=== PATIENT | female | born 1960 | race Caucasian/White ===

== ENCOUNTER 2017-06-20 20:55 | Observation (INO) | payer MEDICARE ==
--- NOTE | 2017-06-20 21:11 | PDOC ---
History of Present Illness - General History Source: Patient, Family - History of Present Illness Initial Comments: 06/20/17 22:01 The patient is a 57 year old female, with a significant past medical history of diabetes and controlled asthma who presents to the emergency department with, of a headache, disorientation, abdominal pain, and 4 episodes of emesis for the past hour. As per patients family friend, as the patient and her were on a car ride home she became diaphoretic, so she gave her soda which she vomited. Upon arriving home, she had 3 more cases of emesis. Patient was capable of ambulating post emesis to the hospital. The patients family friend reports taking her glucose reading and it being 348 which is higher than her normal 200s range. The patient reports taking Advil for her headache last night, with relief. As per patients family friend she was sick with the cold two weeks ago when she had a Tmax of 101 degrees F. The patient is not up to date with her flu shot. The patient reports her asthma is well controlled and she uses an inhaler once a year. The patient reports to have a cough. She denies recent fevers, chills, or dizziness. She denies diarrhea or constipation. She denies recent dysuria, frequency, urgency or hematuria. She denies recent chest pain or shortness of breath. Allergies: NKA Past surgical history: Knee surgery, Plate in her neck after a work accident. Social history: Smoker (3-4 cigarettes per day). Denies EtOH use and recreational drug use. <Sera Adams - Last Filed: 06/21/17 00:28> <Kasie Carmichael - Last Filed: 06/22/17 02:49> - General Chief Complaint: Syncope/Near Syncope Stated Complaint: FATIGUE Time Seen by Provider: 06/20/17 21:11 Past History <Sera Adams - Last Filed: 06/21/17 00:28> - Past Medical History COPD: No Diabetes: Yes - Suicide/Smoking/Psychosocial Hx Smoking History: Never smoked <Kasie Carmichael - Last Filed: 06/22/17 02:49> - Past Medical History Allergies/Adverse Reactions: Allergies Allergy/AdvReac Type Severity Reaction Status Date / Time No Known Allergies Allergy Verified 06/20/17 21:05 Home Medications: Ambulatory Orders Metformin HCl [Glucophage] 1,000 mg PO BID 06/20/17 Amoxicillin - [Amoxicillin 500mg Capsule -] 500 mg PO TID #21 capsule 06/21/17 Review of Systems - Review of Systems Able to Perform ROS?: Yes Comments:: 06/20/17 22:02 GENERAL/CONSTITUTIONAL: No fever or chills. No weakness. HEAD, EYES, EARS, NOSE AND THROAT: No change in vision. No ear pain or discharge. No sore throat. CARDIOVASCULAR: No chest pain or shortness of breath. RESPIRATORY: +Cough. No wheezing, or hemoptysis. GASTROINTESTINAL: +Vomiting. +Abdominal pain. No diarrhea or constipation. GENITOURINARY: No dysuria, frequency, or change in urination. MUSCULOSKELETAL: No joint or muscle swelling or pain. No neck or back pain. SKIN: No rash NEUROLOGIC: +Headache. No vertigo, loss of consciousness, or change in strength/ sensation. ENDOCRINE: No increased thirst. No abnormal weight change. HEMATOLOGIC/LYMPHATIC: No anemia, easy bleeding, or history of blood clots. ALLERGIC/IMMUNOLOGIC: No hives or skin allergy. All Other Systems: Reviewed and Negative <Sera Adams - Last Filed: 06/21/17 00:28> *Physical Exam - Vital Signs Last Vital Signs Temp Pulse Resp BP Pulse Ox 97.6 F 69 16 123/66 99 06/20/17 21:03 06/20/17 22:00 06/20/17 22:00 06/20/17 22:00 06/20/17 21:03 - Physical Exam Comments: 06/20/17 22:02 GENERAL: Awake, alert, and fully oriented, in no acute distress. No fever. HEAD: No signs of trauma EYES: PERRLA, EOMI, sclera anicteric, conjunctiva clear ENT: Auricles normal inspection, hearing grossly normal, nares patent, oropharynx clear without exudates. Moist mucosa NECK: Normal ROM, supple, no lymphadenopathy, JVD, or masses LUNGS: Breath sounds equal, clear to auscultation bilaterally. No wheezes, and no crackles HEART: Regular rate and rhythm, normal S1 and S2, no murmurs, rubs or gallops ABDOMEN: Soft, nontender, normoactive bowel sounds. No guarding, no rebound. No masses. No flank pain. EXTREMITIES: Normal range of motion, no edema. No clubbing or cyanosis. No cords, erythema, or tenderness. Normal reflexology. NEUROLOGICAL: Cranial nerves II through XII grossly intact. Normal speech, normal gait SKIN: Warm, Dry, normal turgor, no rashes or lesions noted. <Sera Adams - Last Filed: 06/21/17 00:28> - Vital Signs Last Vital Signs Temp Pulse Resp BP Pulse Ox 97.6 F 75 18 154/79 99 06/20/17 21:03 06/20/17 21:03 06/20/17 21:03 06/20/17 21:03 06/20/17 21:03 <Kasie Carmichael - Last Filed: 06/22/17 02:49> ED Treatment Course - LABORATORY CBC & Chemistry Diagram: 06/20/17 21:23 06/20/17 21:23 - ADDITIONAL ORDERS Additional order review: Laboratory Results 06/20/17 21:23 PT with INR 11.90 H INR 1.05 06/20/17 21:23 RBC 4.46 MCV 75.1 L MCHC 32.1 RDW 16.7 H MPV 8.9 Neutrophils % 72.9 Lymphocytes % 20.6 Monocytes % 4.7 Eosinophils % 1.5 Basophils % 0.3 - Medications Given in the ED: ED Medications Discontinued Medications Generic Name Dose Route Start Last Admin Trade Name Freq PRN Reason Stop Dose Admin Acetaminophen 1,000 mg 06/20/17 21:27 06/20/17 21:34 Ofirmev Injection - IVPB 06/20/17 21:28 1,000 mg ONCE ONE Administration Metoclopramide HCl 10 mg 06/20/17 21:27 06/20/17 21:34 Reglan Injection - IVPUSH 06/20/17 21:28 10 mg ONCE ONE Administration <Sera Adams - Last Filed: 06/21/17 00:28> - LABORATORY CBC & Chemistry Diagram: 06/21/17 05:05 06/21/17 05:05 <Kasie Carmichael - Last Filed: 06/22/17 02:49> Medical Decision Making - Medical Decision Making 11:45pm Message sent via [email or web address] to hospitalist for observation admission for near syncope. 06/21/17 00:28 EXAM: CT head/brain without contrast FINDINGS: There are no calvarial, facial or skull base fractures. There are no intracranial hemorrhages or brain parenchymal contusion injuries. There are no extra-axial fluid collections or evidence of an intra-axial mass lesion. There is no evidence of an acute ischemic lesion at this time. The sulci and ventricles are normal in size. Orbital and petrous structures, cerebellopontine angles, and posterior fossa appear unremarkable. There is mild mucosal thickening within the right anterior middle and posterior ethmoid air cells, suggesting sinusitis. The paranasal and mastoid sinuses are clear. IMPRESSION: Mild right ethmoid sinusitis. No calvarial, facial or skull base fractures. No intracranial hemorrhages or brain parenchymal contusion injuries. Read by:Dr. Arnold Gomes EXAM: US ABDOMEN LIMITED FINDINGS: . Cholelithiasis, without evidence for acute cholecystitis. Mobile 2.6 cm gallstone. Multiple sub-5 mm gallbladder polyps or adherent gallstones. . Common bile duct caliber normal, 3 mm. Pancreas is echogenic probable fatty replaced but suboptimally assessed. . Right kidney appears unremarkable. . Imaged aorta non-aneurysmal. Read by: Dr. Karl Salas <Sera Adams - Last Filed: 06/21/17 00:28> - Medical Decision Making 06/20/17 22:32 Pt comes with vomiting x 4 nausea and a momentary weakness and unresponsivenss in the car with her neighbor/family. She had been shopping all evening, when on the way home in the car she became faint. Pt got home and vomited 4 times. She was driven to the ER. Here she is neurologically intact and she complains of headache and nausea. She states that she had the MUNOZ yesterday and that she had taken advil with relief. Today she had eaten tortillas beans and rice prior to going shopping. Pt has no SOB and no CP. She has a hx of DM and her blood sugar is slightly elevated. Pt will be admitted <Kasie Carmichael - Last Filed: 06/22/17 02:49> *DC/Admit/Observation/Transfer - Attestations Scribe Attestion: 06/20/17 22:02 Documentation prepared by Sera Adams, acting as durable medical equipment technician for Kasie Carmichael MD. <Sera Adams - Last Filed: 06/21/17 00:28> - Discharge Dispostion Admit: Yes <Kasie Carmichael - Last Filed: 06/22/17 02:49> Diagnosis at time of Disposition: Near syncope, Diabetes - Discharge Dispostion Disposition: HOME Condition at time of disposition: Improved
[2017-06-20] MEDS ORDERED: ACETAMINOPHEN 1000 MG/100 ML VIAL (NON FORMULARY) IVPB ONE (21:27)
[2017-06-20] MEDS ORDERED: METOCLOPRAMIDE HCL INJECTION 10 MG/2 ML VIAL IVPUSH ONE (21:27)
[2017-06-20] MEDS ORDERED: METOCLOPRAMIDE HCL INJECTION 10 MG/2 ML VIAL ONE (21:30)
[2017-06-20] MEDS ORDERED: ACETAMINOPHEN INJECTION 100 ML IVPB ONE (21:30)
[2017-06-20 21:37] LABS: BASOPHIL 0.3 % (0-2.0); EOSINOPHIL 1.5 % (0-4.5); MCH 24.1 pg (25.7-33.7); MCHC 32.1 g/dl (32.0-36.0); MEAN CELL VOLUME 75.1 fl (80-96); MEAN PLT VOLUME 8.9 fl (7.5-11.1); NEUTROPHILS 72.9 % (42.8-82.8); PLATELET COUNT 249 K/MM3 (134-434); RDW 16.7 % (11.6-15.6); WHITE BLOOD COUNT 8.7 K/mm3 (4.0-10.0)
[2017-06-20 21:55] LABS: INR 1.05 (0.82-1.09); PROTHROMBIN TIME (PATIENT) 11.9 SEC (9.98-11.88)
[2017-06-20 22:04] LABS: ALBUMIN 3.4 g/dl (3.4-5.0); ANION GAP 10 (8-16); BILIRUBIN,TOTAL 0.4 mg/dL (0.2-1.0); CALCIUM 8.4 mg/dL (8.5-10.1); CO2 21 mmol/L (21-32); CREATININE 0.7 mg/dL (0.55-1.02); SGOT/AST 58 U/L (15-37); SGPT/ALT 78 U/L (12-78); TOT PROT 7.8 g/dl (6.4-8.2)
[2017-06-20 22:06] LABS: ALK PHOS 138 U/L (45-117); CPK 96 IU/L (26-192); TROPONIN I < 0.02 ng/ml (0.00-0.05)
[2017-06-20 22:07] LABS: GLUCOSE,RANDOM 313 mg/dL (74-106)
[2017-06-21] MEDS ORDERED: ONDANSETRON 4 MG/2 ML VIAL IVPB PRN (01:28)
[2017-06-21] MEDS ORDERED: ACETAMINOPHEN 325 MG TABLET (FP) PO PRN (01:29)
[2017-06-21 02:12] VITALS: BMI 26.2
--- NOTE | 2017-06-21 02:38 | HP ---
Admitting History and Physical - Admission Chief Complaint: vomiting, fainting, abdominal pain History of Present Illness: 57 yo Citizen Of [place] speaking f w hx of dm, active tobacco smoker, presents to the Er for AMS, vomiting, MUNOZ evaluation. Patient reports onset of vomiting, MUNOZ, and pain in "pit of stomach" 2 days ago. She reports her MUNOZ is associated with vomiting. She states the pain is throbbing located in the front and right side. She reports taking Advil with effect. She denies having headaches like this in the past. She denies any associated fevers or new neck stiffness. She denies any head trauma or injury. She reports having 4 episodes of yellowish emesis today. She reports fainting while she was riding in the car. She states she felt as though she was semi-conscious. She reports episode did not last long. She reports she had epigastric and RUQ pain associated with vomiting, which was relieved with Advil. She says she had a "cold " 2 weeks ago. She reports still having a dry cough. She denies any sick contacts. She denies diarrhea. She reports having vision loss in her Right eye which lasted a short time. Ros neg except for HPI PMh/PSH- Arthroscopic knee surgery, cervical spine surgery. DM Social- + tobacco use. Denies rec drugs Famhx- mom/dad- DM Pex General- in nad, alert Resp- no cough, lungs ctab, no ronchi, no rales Cards- s1s2 heard, no JVD, no leg edema Gi- non-tender, no guarding, no rebound, BS+ Musk- normal arom bue/ble Skin- no erythema Neuro- no focal deficits, eomi, cn2-12 grossly intact, speech clear, no facial droop Psych- cooperative, no agitation Hent- at/nc, jay, neck supple, trachea midline PRob list DM fainting vomiting epigastric pain MUNOZ Imaging: EXAM: CT head/brain without contrast FINDINGS: There are no calvarial, facial or skull base fractures. There are no intracranial hemorrhages or brain parenchymal contusion injuries. There are no extra-axial fluid collections or evidence of an intra-axial mass lesion. There is no evidence of an acute ischemic lesion at this time. The sulci and ventricles are normal in size. Orbital and petrous structures, cerebellopontine angles, and posterior fossa appear unremarkable. There is mild mucosal thickening within the right anterior middle and posterior ethmoid air cells, suggesting sinusitis. The paranasal and mastoid sinuses are clear. IMPRESSION: Mild right ethmoid sinusitis. No calvarial, facial or skull base fractures. No intracranial hemorrhages or brain parenchymal contusion injuries. CXR appears clear by my eye EKG non-ischemic A/P- 57 yo [place] speaking f w hx of dm, active tobacco smoker, presents to the Er for AMS, vomiting, MUNOZ evaluation and placed in observation for evaluation. 1. Epigastric pain, Vomiting -? gastroenteritis. IVF. Prn zofran. Pain control 2. Fainting -? possibly 2/2 vasovagal r/t vomiting - EKG normal. 1st Trop neg. CTH neg. CXr appears clear by my eye. Non-focal neuro exam hydrate with IVF. Check orthostatic vitals, Cardiac tele, F/u Trops, TSH. Neuro checks. 3. MUNOZ ?Sinusitis vs viral syndrome - CTH negative for ICH, + ethmoid sinusitis. Pain control. Start Amoxicillin. 4. DM- SSI, Monitor F/s. Check A1c DVT prophy scd, oob FEN IVF, advance diet as tolerated Dispo- obs for vomiting, epigastric pain and fainting. History Source: Patient Limitations to Obtaining History: Language Barrier - Smoking History Smoking history: Never smoked - Alcohol/Substance Use Hx Alcohol Use: No Home Medications - Allergies Allergies/Adverse Reactions: Allergies Allergy/AdvReac Type Severity Reaction Status Date / Time No Known Allergies Allergy Verified 06/20/17 21:05 - Home Medications Home Medications: Ambulatory Orders Metformin HCl [Glucophage] 1,000 mg PO BID 06/20/17 Amoxicillin - [Amoxicillin 500mg Capsule -] 500 mg PO TID #21 capsule 06/21/17 Physical Examination Vital Signs: Vital Signs Temperature 97.8 F 06/21/17 01:55 Pulse Rate 59 L 06/21/17 01:55 Respiratory Rate 18 06/21/17 01:55 Blood Pressure 117/61 06/21/17 01:55 O2 Sat by Pulse Oximetry (%) 99 06/21/17 01:36 Labs: CBC, BMP 06/20/17 21:23 06/20/17 21:23 Visit type - Emergency Visit Emergency Visit: Yes ED Registration Date: 06/21/17 Care time: The patient presented to the Emergency Department on the above date and was hospitalized for further evaluation of their emergent condition. - New Patient This patient is new to me today: Yes Date on this admission: 06/22/17 - Critical Care Critical Care patient: No
[2017-06-21] MEDS ORDERED: SODIUM CHLORIDE 1,000 ML IV SCH (02:45)
[2017-06-21] MEDS ORDERED: AMOXICILLIN 500 MG CAPSULE (FP) PO SCH (06:00)
[2017-06-21 06:09] VITALS: TEMP 97.8
[2017-06-21] MEDS: INSULIN SLIDING SCALE (NOVOLOG) 1 VIAL SQ SCH ×2 (06:44→12:06)
[2017-06-21 06:54] LABS: BASOPHIL 0.3 % (0-2.0); MCH 23.9 pg (25.7-33.7); MCHC 32.1 g/dl (32.0-36.0); MEAN CELL VOLUME 74.5 fl (80-96); MEAN PLT VOLUME 8.8 fl (7.5-11.1); NEUTROPHILS 47.9 % (42.8-82.8); PLATELET COUNT 239 K/MM3 (134-434); WHITE BLOOD COUNT 8.6 K/mm3 (4.0-10.0)
[2017-06-21 07:18] LABS: ALBUMIN 2.8 g/dl (3.4-5.0); ANION GAP 6 (8-16); BILIRUBIN,TOTAL 0.4 mg/dL (0.2-1.0); CALCIUM 7.8 mg/dL (8.5-10.1); CO2 24 mmol/L (21-32); CREATININE 0.5 mg/dL (0.55-1.02); GLUCOSE,RANDOM 184 mg/dL (74-106); SGOT/AST 38 U/L (15-37); SGPT/ALT 61 U/L (12-78); TOT PROT 6.2 g/dl (6.4-8.2)
[2017-06-21 07:26] LABS: ALK PHOS 107 U/L (45-117); THYROID STIMULATING HORMONE 0.62 uIU/ml (0.358-3.74)
[2017-06-21 07:27] LABS: CPK 72 IU/L (26-192)
[2017-06-21 07:28] LABS: TROPONIN I < 0.02 ng/ml (0.00-0.05)
--- NOTE | 2017-06-21 08:35 | EKG ---
Test Reason : Blood Pressure : / mmHG Vent. Rate : 066 BPM Atrial Rate : 066 BPM P-R Int : 166 ms QRS Dur : 080 ms QT Int : 396 ms P-R-T Axes : 046 016 022 degrees QTc Int : 415 ms NORMAL SINUS RHYTHM NORMAL ECG NO PREVIOUS ECGS AVAILABLE Confirmed by AKRIN RUBIN, YAMIL ([id number]) on 06/21/2017 8:34:38 AM Referred By: Confirmed By:YAMIL FRAZIER MD
--- NOTE | 2017-06-21 10:57 | DS ---
Physical Exam: SUBJECTIVE: Patient seen and examined OBJECTIVE: Vital Signs Period Temp Pulse Resp BP Sys/Farooq Pulse Ox Last 24 Hr 97.6 F-98.6 F 56-75 16-20 90-154/50-79 97-99 PHYSICAL EXAM GENERAL: The patient is awake, alert, and fully oriented, in no acute distress. HEAD: Normal with no signs of trauma. EYES: PERRL, extraocular movements intact, sclera anicteric, conjunctiva clear. ENT: Ears normal, nares patent, oropharynx clear without exudates, moist mucous membranes. NECK: Trachea midline, full range of motion, supple. LUNGS: Breath sounds equal, clear to auscultation bilaterally, no wheezes, no crackles, no accessory muscle use. HEART: Regular rate and rhythm, S1, S2 without murmur, rub or gallop. ABDOMEN: Soft, nontender, nondistended, normoactive bowel sounds, no guarding, no rebound, no hepatosplenomegaly, no masses. EXTREMITIES: 2+ pulses, warm, well-perfused, no edema. NEUROLOGICAL: Cranial nerves II through XII grossly intact. Normal speech, gait not observed. PSYCH: Normal mood, normal affect. SKIN: Warm, dry, normal turgor, no rashes or lesions noted. LABS Laboratory Results - last 24 hr 06/20/17 06/20/17 06/20/17 21:23 21:23 21:23 WBC 8.7 RBC 4.46 Hgb 10.8 Hct 33.5 MCV 75.1 L MCH 24.1 L MCHC 32.1 RDW 16.7 H Plt Count 249 MPV 8.9 Neutrophils % 72.9 Lymphocytes % 20.6 Monocytes % 4.7 Eosinophils % 1.5 Basophils % 0.3 PT with INR 11.90 H INR 1.05 Sodium 136 Potassium 4.0 Chloride 105 Carbon Dioxide 21 Anion Gap 10 BUN 14 Creatinine 0.7 Creat Clearance w eGFR > 60 POC Glucometer Random Glucose 313 H* Hemoglobin A1c % Calcium 8.4 L Total Bilirubin 0.4 AST 58 H ALT 78 Alkaline Phosphatase 138 H Creatine Kinase 96 Troponin I < 0.02 Total Protein 7.8 Albumin 3.4 Lipase 120 TSH Acetone, Qual 06/20/17 06/21/17 06/21/17 21:23 03:40 05:05 WBC 8.6 RBC 4.01 Hgb 9.6 L D Hct 29.9 L MCV 74.5 L MCH 23.9 L MCHC 32.1 RDW 17.0 H Plt Count 239 MPV 8.8 Neutrophils % 47.9 D Lymphocytes % 41.1 H D Monocytes % 7.7 Eosinophils % 3.0 D Basophils % 0.3 PT with INR INR Sodium Potassium Chloride Carbon Dioxide Anion Gap BUN Creatinine Creat Clearance w eGFR POC Glucometer Random Glucose Hemoglobin A1c % Calcium Total Bilirubin AST ALT Alkaline Phosphatase Creatine Kinase Troponin I < 0.02 Total Protein Albumin Lipase TSH Acetone, Qual Negative L 06/21/17 06/21/17 06/21/17 05:05 05:05 05:05 WBC RBC Hgb Hct MCV MCH MCHC RDW Plt Count MPV Neutrophils % Lymphocytes % Monocytes % Eosinophils % Basophils % PT with INR INR Sodium 139 Potassium 3.7 Chloride 109 H Carbon Dioxide 24 Anion Gap 6 L BUN 10 D Creatinine 0.5 L D Creat Clearance w eGFR > 60 POC Glucometer Random Glucose 184 H D Hemoglobin A1c % 11.7 H Calcium 7.8 L Total Bilirubin 0.4 AST 38 H D ALT 61 D Alkaline Phosphatase 107 D Creatine Kinase 72 Troponin I < 0.02 Total Protein 6.2 L D Albumin 2.8 L Lipase TSH 0.62 Acetone, Qual 06/21/17 06:00 WBC RBC Hgb Hct MCV MCH MCHC RDW Plt Count MPV Neutrophils % Lymphocytes % Monocytes % Eosinophils % Basophils % PT with INR INR Sodium Potassium Chloride Carbon Dioxide Anion Gap BUN Creatinine Creat Clearance w eGFR POC Glucometer 208 Random Glucose Hemoglobin A1c % Calcium Total Bilirubin AST ALT Alkaline Phosphatase Creatine Kinase Troponin I Total Protein Albumin Lipase TSH Acetone, Qual HOSPITAL COURSE: Date of Admission:06/21/17 Date of Discharge: 06/21/17 The patient is a 57 year old female, with a significant past medical history of diabetes and controlled asthma who presents to the emergency department with, of a headache, disorientation, abdominal pain, and 4 episodes of emesis for the past hour. As per patients family friend, as the patient and her were on a car ride home she became diaphoretic, so she gave her soda which she vomited. Upon arriving home, she had 3 more cases of emesis. Patient was capable of ambulating post emesis to the hospital. The patients family friend reports taking her glucose reading and it being 348 which is higher than her normal 200s range. The patient reports taking Advil for her headache last night, with relief. As per patients family friend she was sick with the cold two weeks ago when she had a Tmax of 101 degrees F. The patient is not up to date with her flu shot. The patient reports her asthma is well controlled and she uses an inhaler once a year. The patient reports to have a cough. She denies recent fevers, chills, or dizziness. She denies diarrhea or constipation. She denies recent dysuria, frequency, urgency or hematuria. She denies recent chest pain or shortness of breath. 57 yo ar[place]ian speaking f w hx of dm, active tobacco smoker, presents to the Er for AMS, vomiting, MUNOZ evaluation and placed in observation for evaluation. 1. Epigastric pain, Vomiting -? gastroenteritis. IVF. Prn zofran. Pain control 2. Fainting -? possibly 2/2 vasovagal r/t vomiting - EKG normal. Non-focal neuro exam hydrate with IVF. Check orthostatic vitals, Cardiac tele. 3. MUNOZ ?Sinusitis vs viral syndrome - CTH negative for ICH, + ethmoid sinusitis. Pain control. Start Amoxicillin. 4. DM- SSI, Monitor F/s. Check A1c Dispo- obs for vomiting, epigastric pain and fainting. Minutes to complete discharge: 35 Discharge Summary Reason For Visit: PRE-SYNCOPE, DIABETES MELLITUS Current Active Problems Diabetes (Acute) Near syncope (Acute) Condition: Improved - Instructions Diet, Activity, Other Instructions: A prescription has been sent to your pharmacy for amoxicillin to treat your sinusitis. Take this medication as directed and be sure to FINISH all the pills. It is important to stay well hydrated, drink plenty of non-sugary fluids. Return to the emergency department for any new or worsening symptoms. Referrals: Eris Rutledge MD [Staff Physician] - Disposition: HOME - Home Medications Comprehensive Discharge Medication List: Ambulatory Orders Metformin HCl [Glucophage] 1,000 mg PO BID 06/20/17 Amoxicillin - [Amoxicillin 500mg Capsule -] 500 mg PO TID #21 capsule 06/21/17 This patient is new to me today: Yes Date on this admission: 06/21/17 Emergency Visit: Yes ED Registration Date: 06/21/17 Care time: The patient presented to the Emergency Department on the above date and was hospitalized for further evaluation of their emergent condition. Critical Care patient: No - Discharge Referral Referred to [facility] No
[2017-06-21 13:45] VITALS: BP 97/57; PULSE 65
[2017-06-21 14:23] LABS: URINE APPEARANCE SLCLOUDY; URINE BILIRUBIN NEGATIVE (NEGATIVE); URINE BLOOD NEGATIVE (NEGATIVE); URINE COLOR YELLOW; URINE GLUCOSE (UA) 2+ (NEGATIVE); URINE KETONE TRACE (NEGATIVE); URINE NITRITE NEGATIVE (NEGATIVE); URINE PROTEIN NEGATIVE (NEGATIVE)
[2017-06-21 14:27] LABS: CHOLESTEROL 151 mg/dL (50-200)
[2017-06-21 21:39] LABS: URINE LEUK ESTERASE Negative (NEGATIVE)
== END 2017-06-21 15:11 | disposition home or self-care (01) ==
LOC: JER 20:55 → JERBED 06-21 00:03 → J8W 06-21 01:49 → J4W 06-21 03:31
PROVIDERS: ADMIT Internal Medicine; ATTEND Nurse Practitioner Acute Care
DX: R55 Syncope and collapse (principal); E11.9 Type 2 diabetes mellitus without complications; Z79.84 Long term (current) use of oral hypoglycemic drugs; F17.210 Nicotine dependence, cigarettes, uncomplicated
CPT/HCPCS: 36415; 70450-TC; 71010-TC; 76705-TC; 80053; 80061; 81003; 82009; 82550; 83036; 83690; 83721; 84443; 84484; 85025; 85610; 87254; 87804; 93005; 93010; 99285-25; G0378

== ENCOUNTER 2018-03-07 14:53 | Emergency (ER) | payer OTHER ==
[2018-03-07 15:05] VITALS: BMI 25.9
--- NOTE | 2018-03-07 15:07 | PDOC ---
History of Present Illness - General Chief Complaint: Back Pain Stated Complaint: PAIN Time Seen by Provider: 03/07/18 15:06 - History of Present Illness Initial Comments: The patient is a 57F with a history of T2DM and RA who presents with 1 day of acute on chronic diffuse joint pain including her b/l shoulders, elbows, wrists , knees, and ankles. She reports that she has a history of chronic pain in these joints; however, today her pain is acutely worse. She denies fevers/chills , chest pain, abdominal pain, N/V/C/D, or changes in sensation. She denies any new triggers or activity. She denies falls. 03/07/18 15:47 Past History - Past Medical History Allergies/Adverse Reactions: Allergies Allergy/AdvReac Type Severity Reaction Status Date / Time No Known Allergies Allergy Verified 06/20/17 21:05 Home Medications: Ambulatory Orders Metformin HCl [Glucophage] 1,000 mg PO BID 06/20/17 Amoxicillin - [Amoxicillin 500mg Capsule -] 500 mg PO TID #21 capsule 06/21/17 Oxycodone HCl/Acetaminophen [Percocet 5-325 mg Tablet] 1 tab PO TID PRN #9 tablet MDD 3 tabs 03/07/18 Prednisone [Deltasone] 40 mg PO DAILY 4 Days #8 tablet 03/07/18 Prednisone [Deltasone] 40 mg PO DAILY 4 Days #8 tablet 03/07/18 COPD: No DVT: No Diabetes: Yes - Immunization History Immunization Up to Date: No - Suicide/Smoking/Psychosocial Hx Smoking History: Never smoked Have you smoked in the past 12 months: No Information on smoking cessation initiated: No Hx Alcohol Use: No Drug/Substance Use Hx: No Substance Use Type: None Review of Systems - Review of Systems Able to Perform ROS?: Yes Comments:: GENERAL/CONSTITUTIONAL: No fever or chills. No weakness HEAD, EYES, EARS, NOSE AND THROAT: No change in vision. No ear pain or discharge. No sore throat CARDIOVASCULAR: No chest pain or shortness of breath RESPIRATORY: No cough, wheezing, or hemoptysis GASTROINTESTINAL: No nausea, vomiting, diarrhea or constipation GENITOURINARY: No dysuria, frequency, or change in urination MUSCULOSKELETAL: per HPI SKIN: No rash NEUROLOGIC: No headache, vertigo, loss of consciousness, or change in strength/ sensation ENDOCRINE: No increased thirst. No abnormal weight change HEMATOLOGIC/LYMPHATIC: No anemia, easy bleeding, or history of blood clots ALLERGIC/IMMUNOLOGIC: No hives or skin allergy 03/07/18 15:49 *Physical Exam - Vital Signs Last Vital Signs Temp Pulse Resp BP Pulse Ox 98.0 F 98 H 16 136/98 100 03/07/18 14:53 03/07/18 14:53 03/07/18 14:53 03/07/18 14:53 03/07/18 14:53 - Physical Exam Comments: GENERAL: Awake, alert, and fully oriented, in no acute distress HEAD: No signs of trauma, normocephalic, atraumatic EYES: PERRL, EOMI, sclera anicteric, conjunctiva clear ENT: Hearing grossly normal, nares patent, oropharynx clear without exudates. Moist mucosa NECK: Normal ROM, supple, no lymphadenopathy LUNGS: No distress, speaks full sentences, clear to auscultation bilaterally HEART:Regular rate and rhythm, normal S1 and S2, no murmurs appreciated, peripheral pulses normal and equal bilaterally ABDOMEN: Soft, nontender, normoactive bowel sounds. No guarding, no rebound. EXTREMITIES : TTP over b/l shoulders, chest wall, elbows, wrists, knees (mostly) , and ankles. ROM intact though slow movements 2/2 pain. No clubbing or cyanosis. NEUROLOGICAL: Cranial nerves II through XII grossly intact. Normal speech, normal gait, no focal sensorimotor deficits SKIN: Warm, Dry, normal turgor, no rashes or lesions noted 03/07/18 15:50 ED Treatment Course - LABORATORY CBC & Chemistry Diagram: 03/07/18 16:20 03/07/18 16:20 Medical Decision Making - Medical Decision Making The patient is a 57F with a history of RA who presents with acute on chronic multi-joint arthritic pain ED Course ESR, CRP, CBC, CMP Toradol and Ofirmev for pain 03/07/18 15:51 Pain mildly improved s/p Ofirmev an Toradol 03/07/18 16:57 CRP and ESR elevated consistent with inflammatory joint dz Pain improved s/p Morphine and Steroids Plan to DC with Percocet and 4 more days of Prednisone Pt was discharged home/self-care. Pt was provided written discharge instructions. Additional verbal instructions were given and discussed with Pt Pt was asked to return to the ED immediately for any new or concerning or if they worsen. Pt was in agreement, endorsed understanding, and questions were answered. Patient to f/u with Warp Tension Tester within next 1-3 days Dispo: home 03/07/18 19:33 *DC/Admit/Observation/Transfer Diagnosis at time of Disposition: Rheumatoid arteritis - Discharge Dispostion Disposition: HOME Condition at time of disposition: Improved Decision to Admit order: No - Prescriptions Prescriptions: Oxycodone HCl/Acetaminophen [Percocet 5-325 mg Tablet] 1 tab PO TID PRN #9 tablet MDD 3 tabs PRN Reason: Pain Prednisone [Deltasone] 40 mg PO DAILY 4 Days #8 tablet Prednisone [Deltasone] 40 mg PO DAILY 4 Days #8 tablet - Referrals Referrals: Volodymyr Mccloud [Non Staff, Medical] - - Patient Instructions Printed Discharge Instructions: DI for Rheumatoid Arthritis Additional Instructions: You were seen in the Emergency Department today for acute exacerbation of your rheumatoid arthritis pain. You were treated for your pain and prescribed prednisone and Percocet for your pain. Please take these medications as directed. Also, please follow up with your Warp Tension Tester within the next 1-3 days. Return to the Emergency Room if you develop fever, you have worsening symptoms, or you have new concerning symptoms. - Post Discharge Activity
[2018-03-07] MEDS ORDERED: KETOROLAC TROMETHAMINE 30 MG/1 ML VIAL IM ONE (15:18)
[2018-03-07] MEDS ORDERED: ACETAMINOPHEN 325 MG TABLET (FP) PO ONE (15:18)
--- NOTE | 2018-03-07 15:21 | PDOC ---
Attending Attestation - Resident Resident Name: Vasquez Del Castillo - Medical Decision Making 03/07/18 16:08 Pt presents to the ED complaining of generalized pain consistent with, but worse than prior RA exacerbations. Denies fevers or other complaints. Will check labs and treat pain with IV toradol and IV tylenol. Will check ESR and CRP to evaluate for PMR. If labs are negative will discharge if pain is controlled and admit for observation for pain control if pain cannot be controlled with outpatient meds. <Neelam Grewal - Last Filed: 03/07/18 16:04> - ED Attending Attestation I have performed the following: I have examined & evaluated the patient, The case was reviewed & discussed with the resident, I agree w/resident's findings & plan, Exceptions are as noted - HPI HPI: 03/07/18 16:27 The patient is a 57-year-old Bangladeshi speaking female presents to the emergency department with joint pain. The patient reports acute onset of full body pain for the past 1 day. The patient reports a history of chronic joint thats was aggravated recently. Denies fever, chills, chest pain, SOB, abdominal pain, nausea, vomiting, diarrhea, constipation. Denies numbness, tingling or loss of sensation. PMHx: DM, Arthritis, and RA. PSHx: Arthroscopic knee surgery, cervical spine surgery SHx: None reported Allergies: None PCP: None. - Physicial Exam PE: 03/07/18 16:27 GENERAL: Awake, alert, and fully oriented, (+) Appears uncomfortable. HEAD: No signs of trauma NECK: Normal ROM, supple, no lymphadenopathy, JVD, or masses LUNGS: Breath sounds equal, clear to auscultation bilaterally. No wheezes, and no crackles HEART: Regular rate and rhythm, normal S1 and S2, no murmurs, rubs or gallops ABDOMEN: Soft, nontender, normoactive bowel sounds. No guarding, no rebound. No masses EXTREMITIES: Diffusely tender without erythema. Patient is reluctant to move extremity, appears to have full ROM to the knees, elbows and wrist. no edema. No clubbing or cyanosis. No cords. NEUROLOGICAL: Cranial nerves II through XII grossly intact. Normal speech, normal gait SKIN: Warm, Dry, normal turgor, no rashes or lesions noted. - Medical Decision Making 03/07/18 16:30 Documentation prepared by Belkis Schulte, acting as medical insurance collector for Neleam Grewal MD. <Belkis Schulte - Last Filed: 03/07/18 16:30>
[2018-03-07] MEDS ORDERED: KETOROLAC TROMETHAMINE 30 MG/1 ML VIAL IVPUSH ONE (15:26)
[2018-03-07] MEDS ORDERED: ACETAMINOPHEN 1000 MG/100 ML VIAL (NON FORMULARY) IVPB ONE (15:26)
[2018-03-07] MEDS ORDERED: KETOROLAC TROMETHAMINE 30 MG/1 ML VIAL ONE (16:16)
[2018-03-07] MEDS ORDERED: ACETAMINOPHEN INJECTION 100 ML IVPB ONE (16:16)
[2018-03-07 16:33] LABS: HEMATOCRIT 31.3 % (32.4-45.2); HEMOGLOBIN 10.3 GM/dL (10.7-15.3); MCH 24.6 pg (25.7-33.7); MEAN CELL VOLUME 74.6 fl (80-96); PLATELET COUNT 380 K/MM3 (134-434); RDW 15.7 % (11.6-15.6); WHITE BLOOD COUNT 13.9 K/mm3 (4.0-10.0)
[2018-03-07 17:20] LABS: ALBUMIN 3.3 g/dl (3.4-5.0); ALK PHOS 128 U/L (45-117); ANION GAP 11 (8-16); BILIRUBIN,TOTAL 0.6 mg/dL (0.2-1.0); BLOOD UREA NITROGEN 12 mg/dL (7-18); CALCIUM 9.3 mg/dL (8.5-10.1); CHLORIDE 102 mmol/L (98-107); CO2 22 mmol/L (21-32); CREATININE 0.6 mg/dL (0.55-1.02); GLUCOSE,RANDOM 173 mg/dL (74-106); POTASSIUM 4.1 mmol/L (3.5-5.1); SGOT/AST 41 U/L (15-37); SGPT/ALT 47 U/L (12-78); SODIUM 135 mmol/L (136-145); TOT PROT 8.2 g/dl (6.4-8.2)
[2018-03-07 17:21] LABS: ERYTHROCYTE SEDIMENTATION RATE 106 mm/hr (0-30)
[2018-03-07] MEDS ORDERED: predniSONE 20 MG TABLET (UD) PO ONE (18:01)
[2018-03-07] MEDS ORDERED: morphine CARPU-JECT 4 MG/1 ML DISP.SYRIN IVPUSH ONE (18:02)
[2018-03-07] MEDS ORDERED: predniSONE 20 MG TABLET (UD) ONE (18:24)
[2018-03-07] MEDS ORDERED: morphine SULFATE 4 MG/ML VIAL ONE (18:25)
--- NOTE | 2018-03-07 19:31 | PDOC ---
*Physical Exam - Vital Signs Last Vital Signs Temp Pulse Resp BP Pulse Ox 98.0 F 98 H 16 136/98 100 03/07/18 14:53 03/07/18 14:53 03/07/18 14:53 03/07/18 14:53 03/07/18 14:53 ED Treatment Course - LABORATORY CBC & Chemistry Diagram: 03/07/18 16:20 03/07/18 16:20 - ADDITIONAL ORDERS Additional order review: Laboratory Results 03/07/18 16:20 Sodium 135 L Potassium 4.1 Chloride 102 Carbon Dioxide 22 Anion Gap 11 BUN 12 Creatinine 0.6 Creat Clearance w eGFR > 60 Random Glucose 173 H Calcium 9.3 Total Bilirubin 0.6 AST 41 H ALT 47 Alkaline Phosphatase 128 H C-Reactive Protein 2.5 H Total Protein 8.2 Albumin 3.3 L 03/07/18 16:20 RBC 4.20 MCV 74.6 L MCHC 33.0 RDW 15.7 H MPV 8.0 - Medications Given in the ED: ED Medications Discontinued Medications Generic Name Dose Route Start Last Admin Trade Name Padmaja PRN Reason Stop Dose Admin Acetaminophen 975 mg 03/07/18 15:18 03/07/18 16:10 Tylenol - PO 03/07/18 15:19 Not Given ONCE ONE Acetaminophen 1,000 mg 03/07/18 15:26 03/07/18 16:15 Ofirmev Injection - IVPB 03/07/18 15:27 1,000 mg ONCE ONE Administration Ketorolac Tromethamine 30 mg 03/07/18 15:18 03/07/18 16:10 Toradol Injection - IM 03/07/18 15:19 Not Given ONCE ONE Ketorolac Tromethamine 30 mg 03/07/18 15:26 03/07/18 16:25 Toradol Injection - IVPUSH 03/07/18 15:27 30 mg ONCE ONE Administration Morphine Sulfate 4 mg 03/07/18 18:02 03/07/18 18:31 Morphine Injection - IVPUSH 03/07/18 18:03 4 mg ONCE ONE Administration Prednisone 40 mg 03/07/18 18:01 03/07/18 18:26 Deltasone - PO 03/07/18 18:02 40 mg ONCE ONE Administration Medical Decision Making - Medical Decision Making 03/07/18 19:29 Sign out taken at 5PM. 57 F with polyarthralgias consistent with known RA. Pt being followed by rheumatology. Labs notable for elevated ESR and CRP Compared to pt's outpt labs, these appear to be at baseline Pt given toradol, tylenol, prednisone, and morphine. 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 Pt is well appearing, with normal vitals. Clinically stable for DC at this time. I discussed the physical exam findings, ancillary test results and final diagnoses with the patient. I answered all of the patient's questions. The patient was satisfied with the care received and felt comfortable with the discharge plan and treatment plan. The patient agrees to follow up with the primary care physician within 24-72 hours. *DC/Admit/Observation/Transfer Diagnosis at time of Disposition: Rheumatoid arteritis - Prescriptions Prescriptions: Prednisone [Deltasone] 40 mg PO DAILY 4 Days #8 tablet - Referrals - Patient Instructions - Post Discharge Activity
[2018-03-07 20:59] VITALS: BP 130/78; PULSE 86; TEMP 98.1
== END 2018-03-07 20:35 | disposition home or self-care (01) ==
LOC: JER 14:53
PROC: 3E033NZ Introduction of Analgesics, Hypnotics, Sedatives into Peripheral Vein, Percutaneous Approach (ICD-10-PCS; principal; 2018-03-07)
PROC: 3E033NZ Introduction of Analgesics, Hypnotics, Sedatives into Peripheral Vein, Percutaneous Approach (ICD-10-PCS; 2018-03-07)
PROC: 3E0333Z Introduction of Anti-inflammatory into Peripheral Vein, Percutaneous Approach (ICD-10-PCS; 2018-03-07)
DX: M25.579 Pain in unspecified ankle and joints of unspecified foot (principal); M06.89 Other specified rheumatoid arthritis, multiple sites; E11.9 Type 2 diabetes mellitus without complications; Z79.84 Long term (current) use of oral hypoglycemic drugs
CPT/HCPCS: 36415; 80053; 85027; 85651; 86140; 96374; 96375; 99282-25; J0131

== ENCOUNTER 2019-04-17 18:38 | Inpatient (IN) | payer OTHER ==
[2019-04-17] MEDS ORDERED: KETOROLAC TROMETHAMINE 15 MG/ML VIAL IVPUSH ONE (19:37)
[2019-04-17] MEDS ORDERED: SODIUM CHLORIDE 0.9% 500 ML INFUS.BAG IV ONE (19:37)
[2019-04-17] MEDS ORDERED: ACETAMINOPHEN 1000 MG/100 ML VIAL (NON FORMULARY) IVPB ONE (19:37)
[2019-04-17] MEDS ORDERED: ONDANSETRON 4 MG/2 ML VIAL IVPUSH ONE (19:37)
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
[2019-04-17] MEDS ORDERED: ACETAMINOPHEN INJECTION 100 ML IVPB ONE (19:43)
[2019-04-17] MEDS ORDERED: ONDANSETRON 4 MG/2 ML VIAL ONE (19:44)
[2019-04-17] MEDS ORDERED: KETOROLAC TROMETHAMINE 15 MG/ML VIAL ONE (19:44)
[2019-04-17 20:05] LABS: BASO % 0.3 % (0-2.0); EOS % 1.8 % (0-4.5); HEMATOCRIT 33.4 % (32.4-45.2); HEMOGLOBIN 10.4 GM/dL (10.7-15.3); LYMPH % 20.7 % (8-40); MCH 22.5 pg (25.7-33.7); MCHC 31.1 g/dl (32.0-36.0); MEAN CELL VOLUME 72.2 fl (80-96); MEAN PLT VOLUME 8.1 fl (7.5-11.1); MONO % 6.3 % (3.8-10.2); NEUT % 70.9 % (42.8-82.8); PLATELET COUNT 471 K/MM3 (134-434); RBC 4.62 M/mm3 (3.60-5.2); RDW 17.5 % (11.6-15.6); WHITE BLOOD COUNT 14.2 K/mm3 (4.0-10.0)
[2019-04-17 20:26] LABS: ALBUMIN 3.6 g/dl (3.4-5.0); ALK PHOS 116 U/L (45-117); ANION GAP 11 MMOL/L (8-16); BILIRUBIN,TOTAL 0.3 mg/dL (0.2-1); BLOOD UREA NITROGEN 24.2 mg/dL (7-18); CALCIUM 9.5 mg/dL (8.5-10.1); CHLORIDE 102 mmol/L (98-107); CO2 23 mmol/L (21-32); GLUCOSE,RANDOM 146 mg/dL (74-106); POTASSIUM 4.3 mmol/L (3.5-5.1); SGOT/AST 39 U/L (15-37); SGPT/ALT 34 U/L (13-61); SODIUM 137 mmol/L (136-145); TOT PROT 8.2 g/dl (6.4-8.2)
[2019-04-17 20:57] LABS: LIPASE 170 U/L (73-393)
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
[2019-04-17] MEDS: SODIUM CHLORIDE 1,000 ML IV SCH (22:01)
[2019-04-17] MEDS ORDERED: CIPROFLOXACIN 400 MG/D5W 400 MG/200 ML IVPB IVPB ONE (22:02)
--- NOTE | 2019-04-17 22:04 | PDOC ---
Documentation entered by Sera Adams SCRIBE, acting as scribe for Kasie Carmichael MD. Kasie Carmichael MD: This documentation has been prepared by the Angie schaeffer Nirvannie, SCRIBE, under my direction and personally reviewed by me in its entirety. I confirm that the documentation accurately reflects all work, treatment, procedures, and medical decision making performed by me. Attending Attestation - Resident Resident Name: Vasquez Del Castillo - ED Attending Attestation I have performed the following: I have examined & evaluated the patient, The case was reviewed & discussed with the resident, I agree w/resident's findings & plan - HPI HPI: 04/17/19 20:27 The patient is a 58 year old female, with a significant past medical history of HTN and DM, who presents to the emergency department with, worsening sharp RUQ pain radiating to the back to the back and chest pain. As per patient, the pain was initially intermittent and over the past two weeks has become constant and over he past "few" days has become more severe in nature. She denies recent fevers, chills, headache or dizziness. Allergies: NKDA - Physicial Exam PE: 04/17/19 21:22 GENERAL: +Yellow tinge to the skin. Awake, alert, and fully oriented, in no acute distress HEAD: No signs of trauma EYES: PERRLA, EOMI, + scleral icterus. ENT: Auricles normal inspection, hearing grossly normal, nares patent, oropharynx clear without exudates. Moist mucosa NECK: Normal ROM, supple, no lymphadenopathy, JVD, or masses LUNGS: Breath sounds equal, clear to auscultation bilaterally. No wheezes, and no crackles HEART: Regular rate and rhythm, normal S1 and S2, no murmurs, rubs or gallops ABDOMEN/BACK: +[place] sign positive. +Minimal right flank pain with pressure not percussion. Soft, normoactive bowel sounds. No guarding, no rebound. No masses EXTREMITIES: Normal range of motion, no edema. No clubbing or cyanosis. No cords, erythema, or tenderness NEUROLOGICAL: Cranial nerves II through XII grossly intact. Normal speech SKIN: Warm, Dry, normal turgor, no rashes or lesions noted. - Medical Decision Making 04/17/19 22:03 Pt will be admitted for a cholecystectomy. She has a hopkins's sign and she appears jaundiced, though her Tbili is normal. Worsenin GB pain x 2 weeks. She are pork today
[2019-04-17 23:10] LABS: PROTHROMBIN TIME (PATIENT) 11.8 SEC (9.7-13.0)
[2019-04-17 23:13] LABS: ACTIVATED PTT 27.2 SECONDS (25.2-36.5)
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
[2019-04-18] LABS: URINE APPEARANCE CLEAR; URINE BILIRUBIN NEGATIVE (NEGATIVE); URINE COLOR YELLOW; URINE GLUCOSE (UA) NEGATIVE (NEGATIVE); URINE KETONE NEGATIVE (NEGATIVE); URINE LEUK ESTERASE NEGATIVE (NEGATIVE); URINE NITRITE NEGATIVE (NEGATIVE); URINE PROTEIN TRACE (NEGATIVE); URINE UROBILINOGEN 0.2 mg/dL (0.2-1.0)
[2019-04-18 01:22] LABS: HEMATOCRIT 28.1 % (32.4-45.2); HEMOGLOBIN 8.8 GM/dL (10.7-15.3); MCH 22.4 pg (25.7-33.7); MCHC 31.2 g/dl (32.0-36.0); MEAN CELL VOLUME 71.8 fl (80-96); MEAN PLT VOLUME 7.2 fl (7.5-11.1); PLATELET COUNT 381 K/MM3 (134-434); RBC 3.92 M/mm3 (3.60-5.2); RDW 17.8 % (11.6-15.6); WHITE BLOOD COUNT 10.7 K/mm3 (4.0-10.0)
[2019-04-18 02:46] VITALS: BMI 23.9
[2019-04-18] MEDS: INSULIN SLIDING SCALE (NOVOLOG) 1 VIAL SQ SCH ×4 (06:01→21:21)
[2019-04-18] MEDS: SODIUM CHLORIDE 1,000 ML IV SCH ×2 (06:47→23:21)
[2019-04-18] MEDS ORDERED: metFORMIN HCL 500 MG TABLET (FP) PO SCH (07:00)
[2019-04-18] MEDS ORDERED: glipiZIDE 5 MG TABLET (FP) PO SCH (07:00)
[2019-04-18 08:12] LABS: ALBUMIN 2.8 g/dl (3.4-5.0); BILIRUBIN,TOTAL 0.4 mg/dL (0.2-1); BLOOD UREA NITROGEN 17.4 mg/dL (7-18); CREATININE 0.7 mg/dL (0.55-1.3); TOT PROT 6.3 g/dl (6.4-8.2)
[2019-04-18 08:51] LABS: HEMATOCRIT 27.4 % (32.4-45.2); HEMOGLOBIN 8.5 GM/dL (10.7-15.3); MCH 22.5 pg (25.7-33.7); MEAN CELL VOLUME 72.7 fl (80-96); MEAN PLT VOLUME 8.1 fl (7.5-11.1); PLATELET COUNT 356 K/MM3 (134-434); RBC 3.78 M/mm3 (3.60-5.2); RDW 17.3 % (11.6-15.6); WHITE BLOOD COUNT 10.9 K/mm3 (4.0-10.0)
--- NOTE | 2019-04-18 09:26 | CONSULT ---
- Consultation REQUESTING PROVIDER: CONSULT REQUEST: We have been asked to surgically evaluate this patient for RUQ pain/cholethiasis PCP:Perlita Santoro HISTORY OF PRESENT ILLNESS: 58yo F was admitted for RUQ pain and concern for cholecystitis. Pt states that she was told that she had gallstones a couple years ago, but never followed up with a surgeon. Pt has been complaining of RUQ pain after eating for the past two weeks. The pain became more severe yesterday and associated with n/v. Pt denies fever, chills, cp, or SOB. Denies previous abd surgery. PMHx: HLD, DM Home Medications Medication Instructions Recorded Metformin HCl [Glucophage] 1,000 mg PO DAILY 06/20/17 Glipizide 10 mg PO DAILY 04/17/19 Atorvastatin Ca [Lipitor] 20 mg PO DAILY 04/18/19 Prednisone 5 mg PO DAILY 04/18/19 Allergies Allergy/AdvReac Type Severity Reaction Status Date / Time No Known Allergies Allergy Verified 04/17/19 18:41 REVIEW OF SYSTEMS: CONSTITUTIONAL: Absent: fever, chills, diaphoresis, generalized weakness, malaise, loss of appetite, weight change CARDIOVASCULAR: Absent: chest pain, syncope, palpitations, irregular heart rate, lightheadedness , peripheral edema RESPIRATORY: Absent: cough, shortness of breath, dyspnea with exertion, wheezing, stridor, hemoptysis GASTROINTESTINAL: Absent: abdominal distension, vomiting, diarrhea, constipation, melena, hematochezia +RUQ abd pain, +nausea PHYSICAL EXAM: GENERAL: Awake, alert, and fully oriented, in no acute distress. HEAD: Normal with no signs of trauma. EYES: PERRL, sclera anicteric, conjunctiva clear. NECK: Normal ROM, supple without lymphadenopathy, JVD, or masses. LUNGS: breathing comfortably, No accessory muscle use. HEART: Regular rate and rhythm. ABDOMEN: Soft, RUQ tenderness, not distended, no guarding, no rebound, no masses. No organomegaly. MUSCULOSKELETAL: Normal ROM at all joints. No bony deformities or tenderness. No CVA tenderness. LOWER EXTREMITIES: warm, well-perfused. No calf tenderness. No peripheral edema. NEUROLOGICAL: Normal speech, gait not observed. PSYCH: Cooperative. Good eye contact. Appropriate mood and affect. SKIN: Warm, dry, normal turgor, no rashes or lesions noted. Vital Signs Temperature 98.5 F 04/18/19 06:00 Pulse Rate 74 04/18/19 06:00 Respiratory Rate 20 04/18/19 06:00 Blood Pressure 120/67 04/18/19 06:00 O2 Sat by Pulse Oximetry (%) 98 04/18/19 02:41 Lab Results WBC 10.9 K/mm3 (4.0-10.0) H 04/18/19 06:25 RBC 3.78 M/mm3 (3.60-5.2) 04/18/19 06:25 Hgb 8.5 GM/dL (10.7-15.3) L 04/18/19 06:25 Hct 27.4 % (32.4-45.2) L 04/18/19 06:25 MCV 72.7 fl (80-96) L 04/18/19 06:25 MCHC 31.0 g/dl (32.0-36.0) L 04/18/19 06:25 RDW 17.3 % (11.6-15.6) H 04/18/19 06:25 Plt Count 356 K/MM3 (134-434) 04/18/19 06:25 Sodium 140 mmol/L (136-145) 04/18/19 06:25 Potassium 4.0 mmol/L (3.5-5.1) 04/18/19 06:25 Chloride 108 mmol/L (98-107) H 04/18/19 06:25 Carbon Dioxide 24 mmol/L (21-32) 04/18/19 06:25 Anion Gap 8 MMOL/L (8-16) 04/18/19 06:25 BUN 17.4 mg/dL (7-18) 04/18/19 06:25 Creatinine 0.7 mg/dL (0.55-1.3) 04/18/19 06:25 Random Glucose 94 mg/dL (74-106) 04/18/19 06:25 Calcium 8.0 mg/dL (8.5-10.1) L 04/18/19 06:25 Blood Type B POSITIVE 04/18/19 06:25 Antibody Screen Negative 04/17/19 22:40 INR 1.00 (0.83-1.09) 04/17/19 22:40 U/S shows 2.8 cm mobile gallstone in the gallbladder with mild thickening of the GBW at 3.4mm. Pain could be secondary to cholelithiasis but cannot rule out other causes due to length and character of pain. Problem List - Problems (1) Cholelithiasis Assessment/Plan: Plan -pt appears to have symptomatic cholelithiasis/chronic cholecystitis, will plan to take to the OR tomorrow for lap cholecystectomy -npo after midnight. -IV fluids -pain control -dvt ppx Pt seen and examined with Dr. Sr, who agrees with plan Code(s): K80.20 - CALCULUS OF GALLBLADDER W/O CHOLECYSTITIS W/O OBSTRUCTION
[2019-04-18] MEDS ORDERED: predniSONE 5 MG TABLET (UD) PO SCH (10:00)
[2019-04-18] MEDS ORDERED: PATIENT'S OWN MEDICATION (NON-FORMULARY) (Metformin Hcl [Glucophage] 1,000 MG) PO SCH (10:00)
[2019-04-18] MEDS ORDERED: CIPROFLOXACIN 400 MG/D5W 400 MG/200 ML IVPB IVPB ONE (10:00)
[2019-04-18] MEDS ORDERED: INSULIN (NOVOLOG) ASPART 100 UNITS/ML 10ML VIAL ONE ×2 (12:01→16:54)
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
--- NOTE | 2019-04-18 13:15 | EKG ---
Test Reason : Blood Pressure : / mmHG Vent. Rate : 076 BPM Atrial Rate : 076 BPM P-R Int : 148 ms QRS Dur : 074 ms QT Int : 378 ms P-R-T Axes : 019 011 025 degrees QTc Int : 425 ms NORMAL SINUS RHYTHM CANNOT RULE OUT ANTERIOR INFARCT , AGE UNDETERMINED ABNORMAL ECG WHEN COMPARED WITH ECG OF 20-JUN-2017 21:14, NO SIGNIFICANT CHANGE WAS FOUND Confirmed by TARA DUCKWORTH MD ([id number]) on 04/18/2019 1:15:29 PM Referred By: Confirmed By:TARA DUCKWORTH MD
--- NOTE | 2019-04-18 14:38 | PN ---
Physical Exam: SUBJECTIVE: Patient seen and examined. Pt. states that she had NBNB emesis 3 times yesterday. Pt denies any vomiting today. Pt states that her abdominal pain feels better today. Pt. denies any difficulty breathing, chest pain, fevers or chills. OBJECTIVE: Vital Signs Period Temp Pulse Resp BP Sys/Farooq Pulse Ox Last 24 Hr 98 F-99.2 F 60-79 18-20 101-139/48-72 98-99 GENERAL: The patient is awake, alert, and fully oriented, in no acute distress. HEAD: Normal with no signs of trauma. EYES: PERRL, extraocular movements intact, sclera anicteric, conjunctiva clear. No ptosis. ENT: Ears normal, nares patent, oropharynx clear without exudates, moist mucous membranes. NECK: Trachea midline, full range of motion, supple. LUNGS: Breath sounds equal, clear to auscultation bilaterally, no wheezes, no crackles, no accessory muscle use. HEART: Regular rate and rhythm, S1, S2 without murmur ABDOMEN: Soft, diffuse tenderness to palpation most tender in RUQ, nondistended , normoactive bowel sounds, RUQ guarding, no rebound EXTREMITIES: 2+ pulses, warm, well-perfused, no edema. NEUROLOGICAL: Cranial nerves II through XII grossly intact. Normal speech, gait not observed. PSYCH: Normal mood, normal affect. SKIN: Warm, dry, normal turgor, no rashes or lesions noted Laboratory Results - last 24 hr 04/17/19 04/17/19 04/17/19 19:52 19:52 19:52 WBC 14.2 H RBC 4.62 Hgb 10.4 L Hct 33.4 MCV 72.2 L MCH 22.5 L MCHC 31.1 L RDW 17.5 H Plt Count 471 H D MPV 8.1 Absolute Neuts (auto) 10.1 H Neutrophils % 70.9 D Lymphocytes % 20.7 D Monocytes % 6.3 Eosinophils % 1.8 Basophils % 0.3 Nucleated RBC % 0 Retic Count PT with INR INR PTT (Actin FS) Sodium 137 Potassium 4.3 Chloride 102 Carbon Dioxide 23 Anion Gap 11 BUN 24.2 H Creatinine 1.0 Est GFR (CKD-EPI)AfAm 71.92 Est GFR (CKD-EPI)NonAf 62.05 POC Glucometer Random Glucose 146 H Hemoglobin A1c % Calcium 9.5 Iron TIBC Iron Saturation Unsaturated IBC Ferritin Total Bilirubin 0.3 AST 39 H ALT 34 Alkaline Phosphatase 116 Creatine Kinase 30 Troponin I < 0.02 Total Protein 8.2 Albumin 3.6 Lipase 170 Urine Color Urine Appearance Urine pH Ur Specific [place] Urine Protein Urine Glucose (UA) Urine Ketones Urine Blood Urine Nitrite Urine Bilirubin Urine Urobilinogen Ur Leukocyte Esterase Stool Occult Blood Blood Type Antibody Screen 04/17/19 04/17/19 04/17/19 21:27 22:40 22:40 WBC RBC Hgb Hct MCV MCH MCHC RDW Plt Count MPV Absolute Neuts (auto) Neutrophils % Lymphocytes % Monocytes % Eosinophils % Basophils % Nucleated RBC % Retic Count PT with INR 11.80 INR 1.00 PTT (Actin FS) 27.2 Sodium Potassium Chloride Carbon Dioxide Anion Gap BUN Creatinine Est GFR (CKD-EPI)AfAm Est GFR (CKD-EPI)NonAf POC Glucometer Random Glucose Hemoglobin A1c % Calcium Iron TIBC Iron Saturation Unsaturated IBC Ferritin Total Bilirubin AST ALT Alkaline Phosphatase Creatine Kinase Troponin I Total Protein Albumin Lipase 168 Urine Color Urine Appearance Urine pH Ur Specific [place] Urine Protein Urine Glucose (UA) Urine Ketones Urine Blood Urine Nitrite Urine Bilirubin Urine Urobilinogen Ur Leukocyte Esterase Stool Occult Blood Blood Type B POSITIVE Antibody Screen Negative 04/17/19 04/18/19 04/18/19 23:50 01:15 02:30 WBC 10.7 H RBC 3.92 Hgb 8.8 L Hct 28.1 L D MCV 71.8 L MCH 22.4 L MCHC 31.2 L RDW 17.8 H Plt Count 381 MPV 7.2 L D Absolute Neuts (auto) Neutrophils % Lymphocytes % Monocytes % Eosinophils % Basophils % Nucleated RBC % Retic Count PT with INR INR PTT (Actin FS) Sodium Potassium Chloride Carbon Dioxide Anion Gap BUN Creatinine Est GFR (CKD-EPI)AfAm Est GFR (CKD-EPI)NonAf POC Glucometer Random Glucose Hemoglobin A1c % Calcium Iron TIBC Iron Saturation Unsaturated IBC Ferritin Total Bilirubin AST ALT Alkaline Phosphatase Creatine Kinase Troponin I Total Protein Albumin Lipase Urine Color Yellow Urine Appearance Clear Urine pH 6.0 Ur Specific [place] 1.034 Urine Protein Trace Urine Glucose (UA) Negative Urine Ketones Negative Urine Blood Negative Urine Nitrite Negative Urine Bilirubin Negative Urine Urobilinogen 0.2 Ur Leukocyte Esterase Negative Stool Occult Blood Negative Blood Type Antibody Screen 04/18/19 04/18/19 04/18/19 05:43 06:25 06:25 WBC 10.9 H RBC 3.78 Hgb 8.5 L Hct 27.4 L MCV 72.7 L MCH 22.5 L MCHC 31.0 L RDW 17.3 H Plt Count 356 MPV 8.1 D Absolute Neuts (auto) Neutrophils % Lymphocytes % Monocytes % Eosinophils % Basophils % Nucleated RBC % Retic Count 0.90 PT with INR INR PTT (Actin FS) Sodium Potassium Chloride Carbon Dioxide Anion Gap BUN Creatinine Est GFR (CKD-EPI)AfAm Est GFR (CKD-EPI)NonAf POC Glucometer 102 Random Glucose Hemoglobin A1c % Calcium Iron TIBC Iron Saturation Unsaturated IBC Ferritin Total Bilirubin AST ALT Alkaline Phosphatase Creatine Kinase Troponin I Total Protein Albumin Lipase Urine Color Urine Appearance Urine pH Ur Specific [place] Urine Protein Urine Glucose (UA) Urine Ketones Urine Blood Urine Nitrite Urine Bilirubin Urine Urobilinogen Ur Leukocyte Esterase Stool Occult Blood Blood Type B POSITIVE Antibody Screen 04/18/19 04/18/19 04/18/19 06:25 06:25 11:56 WBC RBC Hgb Hct MCV MCH MCHC RDW Plt Count MPV Absolute Neuts (auto) Neutrophils % Lymphocytes % Monocytes % Eosinophils % Basophils % Nucleated RBC % Retic Count PT with INR INR PTT (Actin FS) Sodium 140 Potassium 4.0 Chloride 108 H Carbon Dioxide 24 Anion Gap 8 BUN 17.4 Creatinine 0.7 Est GFR (CKD-EPI)AfAm 110.69 Est GFR (CKD-EPI)NonAf 95.50 POC Glucometer 195 Random Glucose 94 Hemoglobin A1c % 10.0 H Calcium 8.0 L Iron 41 L TIBC 337 Iron Saturation 12 L Unsaturated IBC 296 H Ferritin 12.1 Total Bilirubin 0.4 AST 18 ALT 24 Alkaline Phosphatase 84 Creatine Kinase Troponin I Total Protein 6.3 L Albumin 2.8 L Lipase Urine Color Urine Appearance Urine pH Ur Specific [place] Urine Protein Urine Glucose (UA) Urine Ketones Urine Blood Urine Nitrite Urine Bilirubin Urine Urobilinogen Ur Leukocyte Esterase Stool Occult Blood Blood Type Antibody Screen Active Medications Current Medications Sodium Chloride (Normal Saline -) 1,000 mls @ 75 mls/hr IV ASDIR JAMIE Last Admin: 04/18/19 06:47 Dose: 75 mls/hr Metronidazole (Flagyl 500mg Premixed Ivpb -) 500 mg in 100 mls @ 100 mls/hr IVPB Q8H-IV JAMIE Last Admin: 04/18/19 11:49 Dose: 100 mls/hr Insulin Aspart (Novolog Vial Sliding Scale -) 1 vial SQ ACHS JAMIE; Protocol Last Admin: 04/18/19 12:38 Dose: 1 unit Prednisone (Deltasone -) 5 mg PO DAILY JAMIE Last Admin: 04/18/19 10:12 Dose: 5 mg ASSESSMENT/PLAN: Pt. is a 58 y.o. F w/ PMHx. of DM and OA here for abdominal pain for 2 years, worse over last 2 weeks and especially on day of admission. # Abdominal pain 2/2 Cholelithiasis Abd U/S shows 2.8 cm mobile gallstone in the gallbladder with mild thickening of the GBW at 3.4mm. Pain could be secondary to cholelithiasis but cannot rule out other causes due to length and character of pain. CXR - CT AP with oral and IV contrast shows mild splenomegaly, no acute process, cholelithiasis, fatty liver Trend CBC Surgery consult (Dr. Sr) appreciated - For CCY in AM D/C Abdulkadir, c/w Flagyl for empiric GI coverage perioperatively NPO # Microcytic Anemia Patient with history of anemia during previous visits, current Hgb at 10.4 Repeat CBC at 8.8 after fluids- likely dilutional Low MCV, elevated RDW FOBT negative f/u Iron studies and Retic count Transfuse for Hgb less than 7 # Elevated BUN BUN at 24.2, normal at previous visits likely secondary to hypovolemia and dehydration as patient has been vomiting and has had poor oral intake, low BP on ED arrival s/p 1L bolus of NS IVF # DM 2 BGM ACHS ISS ACHS Hold home meds # FEN NS @ 75mls/hr monitor electrolytes, replete as needed NPO # DVT Ppx. SCDs ONLY, hold AC Visit type - Emergency Visit Emergency Visit: Yes ED Registration Date: 04/17/19 Care time: The patient presented to the Emergency Department on the above date and was hospitalized for further evaluation of their emergent condition. - New Patient This patient is new to me today: Yes Date on this admission: 04/18/19 - Critical Care Critical Care patient: No - Discharge Referral Referred to [facility] Med P.C[facility] No ATTENDING PHYSICIAN STATEMENT I saw and evaluated the patient. I reviewed the resident's note and discussed the case with the resident. I agree with the resident's findings and plan as documented. SUBJECTIVE: OBJECTIVE: ASSESSMENT AND PLAN:
--- NOTE | 2019-04-18 16:55 | PN ---
Teaching Attending Note Name of Resident: Carmen Rincon ATTENDING PHYSICIAN STATEMENT I saw and evaluated the patient. I reviewed the resident's note and discussed the case with the resident. I agree with the resident's findings and plan as documented. SUBJECTIVE: Patient is 58yo female presented with RUQ pain after eating rice and pork. no fever or chills OBJECTIVE: Vital Signs Temperature 97.5 F L 04/18/19 15:00 Pulse Rate 62 04/18/19 15:00 Respiratory Rate 20 04/18/19 15:00 Blood Pressure 96/33 L 04/18/19 15:00 O2 Sat by Pulse Oximetry (%) 98 04/18/19 09:00 GENERAL: The patient is awake, alert, and fully oriented, in no acute distress. HEAD: Normal with no signs of trauma. EYES: PERRL, extraocular movements intact, sclera anicteric, conjunctiva clear. ENT: Ears normal, oropharynx clear without exudates, moist mucous membranes. NECK: Trachea midline, full range of motion, supple. LUNGS: Breath sounds equal, clear to auscultation bilaterally, no wheezes, no crackles, no accessory muscle use. HEART: Regular rate and rhythm, S1, S2 without murmur, rub or gallop. ABDOMEN: Soft, RUQ tenderness, positive for hopkins's sign ,normoactive bowel sounds, no guarding, no rebound, +splenomegaly, no masses. EXTREMITIES: 2+ pulses, warm, well-perfused, no edema. NEUROLOGICAL: Cranial nerves II through XII grossly intact. Normal speech, gait not observed. PSYCH: Normal mood, normal affect. SKIN: Warm, dry, normal turgor, no rashes or lesions noted CBCD WBC 10.9 K/mm3 (4.0-10.0) H 04/18/19 06:25 RBC 3.78 M/mm3 (3.60-5.2) 04/18/19 06:25 Hgb 8.5 GM/dL (10.7-15.3) L 04/18/19 06:25 Hct 27.4 % (32.4-45.2) L 04/18/19 06:25 MCV 72.7 fl (80-96) L 04/18/19 06:25 MCHC 31.0 g/dl (32.0-36.0) L 04/18/19 06:25 RDW 17.3 % (11.6-15.6) H 04/18/19 06:25 Plt Count 356 K/MM3 (134-434) 04/18/19 06:25 MPV 8.1 fl (7.5-11.1) D 04/18/19 06:25 CMP Sodium 140 mmol/L (136-145) 04/18/19 06:25 Potassium 4.0 mmol/L (3.5-5.1) 04/18/19 06:25 Chloride 108 mmol/L (98-107) H 04/18/19 06:25 Carbon Dioxide 24 mmol/L (21-32) 04/18/19 06:25 Anion Gap 8 MMOL/L (8-16) 04/18/19 06:25 BUN 17.4 mg/dL (7-18) 04/18/19 06:25 Creatinine 0.7 mg/dL (0.55-1.3) 04/18/19 06:25 Random Glucose 94 mg/dL (74-106) 04/18/19 06:25 Calcium 8.0 mg/dL (8.5-10.1) L 04/18/19 06:25 Total Bilirubin 0.4 mg/dL (0.2-1) 04/18/19 06:25 AST 18 U/L (15-37) 04/18/19 06:25 ALT 24 U/L (13-61) 04/18/19 06:25 Alkaline Phosphatase 84 U/L (45-117) 04/18/19 06:25 Total Protein 6.3 g/dl (6.4-8.2) L 04/18/19 06:25 Albumin 2.8 g/dl (3.4-5.0) L 04/18/19 06:25 CARDIAC ENZYMES Creatine Kinase 30 U/L (26-192) 04/17/19 19:52 Troponin I < 0.02 ng/ml (0.00-0.05) 04/17/19 19:52 Current Medications Generic Name Dose Route Start Last Admin Trade Name Freq PRN Reason Stop Dose Admin Sodium Chloride 1,000 mls @ 75 mls/hr 04/17/19 21:45 04/18/19 06:47 Normal Saline - IV 75 mls/hr ASDIR JAMIE Administration Metronidazole 500 mg in 100 mls @ 100 mls/hr 04/18/19 10:00 04/18/19 11:49 Flagyl 500mg Premixed Ivpb - IVPB 100 mls/hr Q8H-IV JAMIE Administration Insulin Aspart 1 vial 04/18/19 07:00 04/18/19 12:38 Novolog Vial Sliding Scale - SQ 1 unit ACHS JAMIE Administration Protocol Prednisone 5 mg 04/18/19 10:00 04/18/19 10:12 Deltasone - PO 5 mg DAILY JAMIE Administration Home Medications Medication Instructions Recorded Metformin HCl [Glucophage] 1,000 mg PO BID 06/20/17 Glipizide 10 mg PO BID 04/17/19 Atorvastatin Ca [Lipitor] 20 mg PO DAILY 04/18/19 Ferrous Sulfate 325 mg PO ASDIR 04/18/19 Insulin Glargine,Hum.rec.anlog 10 unit SQ HS 04/18/19 [Lantus Solostar] Prednisone 5 mg PO DAILY 04/18/[address] findings on CT A/P ASSESSMENT AND PLAN: Patient is a 58yo female presented to the ED. with RUQ tenderness. after having rice and pork for dinner. # Large choliithiasis with RUQ pain: going to OR for lap cholecystectomy tomorrow, NPO after midnight # microcytic anemia due Iron deficiency anemia monitor: on Iron supplement #T2DM; on ss and lantus continue , hold metformin #HLD: continue lipitor post up DVT Px; heparin , scds
[2019-04-18] MEDS ORDERED: HEPARIN NA (PORCINE) 5,000 UNITS/ML 1ML VIAL SQ ONE (19:35)
[2019-04-19] MEDS: INSULIN SLIDING SCALE (NOVOLOG) 1 VIAL SQ SCH ×2 (06:23→18:38)
[2019-04-19 06:40] LABS: BASO % 0.4 % (0-2.0); HEMATOCRIT 26.2 % (32.4-45.2); HEMOGLOBIN 8.3 GM/dL (10.7-15.3); LYMPH % 45.5 % (8-40); MCH 23.1 pg (25.7-33.7); MCHC 31.7 g/dl (32.0-36.0); MEAN PLT VOLUME 7.8 fl (7.5-11.1); NEUT % 43.1 % (42.8-82.8); PLATELET COUNT 349 K/MM3 (134-434); RBC 3.59 M/mm3 (3.60-5.2); RDW 17.5 % (11.6-15.6); WHITE BLOOD COUNT 7.6 K/mm3 (4.0-10.0)
[2019-04-19 06:53] LABS: INR 1.06 (0.83-1.09); PROTHROMBIN TIME (PATIENT) 12.5 SEC (9.7-13.0)
[2019-04-19 07:16] LABS: ALBUMIN 2.8 g/dl (3.4-5.0); BILIRUBIN,TOTAL 0.3 mg/dL (0.2-1); CALCIUM 8.6 mg/dL (8.5-10.1); CREATININE 0.6 mg/dL (0.55-1.3); POTASSIUM 3.7 mmol/L (3.5-5.1); TOT PROT 6.4 g/dl (6.4-8.2)
[2019-04-19] MEDS ORDERED: BUPIVACAINE HCL/PF 0.5% (5 MG/ML) 30 ML VIAL IJ ONE ×4 (07:18→09:12)
[2019-04-19] MEDS ORDERED: SUCCINYLCHOLINE CHLORIDE 200 MG/10 ML SYRINGE ONE (07:35)
[2019-04-19] MEDS ORDERED: PROPOFOL 20 ML ONE (07:35)
[2019-04-19] MEDS ORDERED: ROCURONIUM BROMIDE 50 MG/5 ML SYRINGE ONE (07:36)
[2019-04-19] MEDS ORDERED: DESFLURANE GAS 240 ML BOTTLE IH ONE (07:43)
[2019-04-19] MEDS ORDERED: DEXAMETHASONE SOD PHOSPHATE 4 MG/1 ML VIAL ONE (08:15)
[2019-04-19] MEDS ORDERED: ALBUTEROL SO4 8 GM HFA INHALER IH ONE (08:21)
[2019-04-19] MEDS ORDERED: HYDROmorphone HCl 2 MG/ML VIAL ONE (08:36)
[2019-04-19] MEDS ORDERED: hydrALAZINE HCL 20 MG/ML VIAL ONE (09:16)
--- NOTE | 2019-04-19 09:30 | OP ---
Operative Note - Note: Operative Date: 04/19/19 Pre-Operative Diagnosis: acute cholecystitis/cholelithiasis Operation: laparoscopic cholecystectomy Findings: acute cholecystitis/cholelithiasis Post-Operative Diagnosis: Same as Pre-op Surgeon: Dread Sr Manager E Learning: Corina Joy Anesthesia: General Specimens Removed: gallbladder and contents Estimated Blood Loss (mls): 20
[2019-04-19] MEDS ORDERED: ALBUTEROL SO4 0.083% IH SOL 2.5 MG/3 ML VIAL.NEB. NEB ONE ×2 (09:45→09:50)
[2019-04-19] MEDS ORDERED: ONDANSETRON 4 MG/2 ML VIAL IVPUSH PRN ×2 (09:53→10:34)
[2019-04-19] MEDS ORDERED: LACTATED RINGERS SOLUTION 1,000 ML IV SCH ×2 (10:00→10:34)
--- NOTE | 2019-04-19 10:19 | SURG ---
Surgery Wrapper Counter Note Wrapper Counter: Corina Joy PA-C Date of Service: 04/19/19 Diagnosis: acute cholecystitis/cholelithiasis Procedure: laparoscopic cholecystectomy I was present for the entirety of the operative procedure. For further detail, please refer to operative report. Visit type - Case Type Case Type: ED Admission - Emergency Emergency Visit: Yes ED Registration Date: 04/17/19 Care time: The patient presented to the Emergency Department on the above date and was hospitalized for further evaluation of their emergent condition. - New patient This patient is new to me today: Yes Date on this admission: 04/19/19
[2019-04-19] MEDS ORDERED: oxyCODONE HCL 5 MG TABLET PO PRN (10:26)
[2019-04-19] MEDS ORDERED: ACETAMINOPHEN 325 MG TABLET (FP) PO PRN (10:27)
[2019-04-19] MEDS ORDERED: SODIUM CHLORIDE 1,000 ML IV SCH (10:34)
--- NOTE | 2019-04-19 10:39 | OP ---
DATE OF OPERATION: 04/19/2019 PREOPERATIVE DIAGNOSIS: Acute cholecystitis, cholelithiasis. POSTOPERATIVE DIAGNOSIS: Acute cholecystitis, cholelithiasis. PROCEDURE: Laparoscopic cholecystectomy. SURGEON: Dread Sr MD CORPORATE PHYSICAL SECURITY SUPERVISOR: Corina Joy PA-C ANESTHESIA: General. OPERATIVE FINDINGS: Acute cholecystitis and cholelithiasis. The rest of the findings were unremarkable. DESCRIPTION OF PROCEDURE: The patient was placed on the operating room table in supine position. After the induction of general anesthesia, the patient's abdomen was prepped with ChloraPrep and draped in sterile fashion. Time-out was taken and then pneumoperitoneum established above the umbilicus using a Veress needle. Once 15 mm of intra-abdominal pressure was obtained, a 5-mm port was placed at the umbilicus. Additional lateral 5-mm ports and a subxiphoid 12-mm port were placed and laparoscopy carried out, and the previously noted findings were observed. The gallbladder was placed on cephalad and lateral traction, and dissection was begun at the neck of the gallbladder where the peritoneum was opened medially and laterally using blunt and sharp dissection and electrocautery. Dissection continued in the triangle of Calot where the cystic duct was identified coursing from the neck of the gallbladder distally to the common bile duct. It was dissected proximally and distally for length. Similarly, the artery was similarly identified and dissected. A critical view of safety was taken, and then the cystic duct divided proximally and distally using Endo Kamaljit after it was clipped twice proximally and distally with large hemoclips. The artery was similarly clipped and divided. Hemostasis was checked for and noted to be good and then the gallbladder was removed from the liver bed in a retrograde fashion using electrocautery. Prior to removal from the edge of the liver, hemostasis was again verified and then the gallbladder removed from the edge of the liver, placed in an EndoCatch, and brought out through the subxiphoid port. Pneumoperitoneum was reestablished, hemostasis verified again, and then the 5-mm lateral and subxiphoid ports were removed under laparoscopic vision without evidence of bleeding from the port sites. The umbilical port was removed and the pneumoperitoneum evacuated. All port sites were infiltrated with 0.5% Marcaine and the skin edges closed with 4-0 Biosyn in a subcuticular and continuous fashion. Steri-Strips and Band-Aid dressings were placed and the procedure terminated at this point and the patient aroused from general anesthesia and transferred to the post anesthesia care unit in stable condition awake and alert. ESTIMATED BLOOD LOSS: 20 mL. REPLACEMENTS: Crystalloid. DRAINS: None. SPECIMENS: Gallbladder and contents to pathology. I, Dread Sr, was physically present in the operating room from the time the patient was placed on the operating room table until she was transferred to the post anesthesia care unit in my company. MD MICHELINE Romano/[id number] MTDD
[2019-04-19] MEDS ORDERED: INSULIN SLIDING SCALE (NOVOLOG) 1 VIAL SQ SCH (11:00)
--- NOTE | 2019-04-19 14:37 | PN.GI ---
GI Progress Note Subjective: S/P Lap Ronit this morning Pain at trochar sites Family present at bedside - Objective Vital Signs: Vital Signs Temperature 98.2 F 04/19/19 13:10 Pulse Rate 72 04/19/19 13:10 Respiratory Rate 16 04/19/19 13:10 Blood Pressure 132/68 04/19/19 13:10 O2 Sat by Pulse Oximetry (%) 95 04/19/19 13:10 Constitutional: Calm Eyes: No: Sclera Icterus Cardiovascular: Yes: Tachycardia Respiratory: Yes: Diminished (at bases bilaterally. poor insp effort) Gastrointestinal Inspection: No: Distention ...Auscultate: Yes: Normoactive Bowel Sounds ...Palpate: Yes: Soft. No: Tenderness ...Percussion: No: Tympanitic Edema: No (No LE edema) Labs: CBC, BMP 04/19/19 05:30 04/19/19 05:30 INR, PTT INR 1.06 (0.83-1.09) 04/19/19 05:30 Problem List - Problems (1) Cholecystitis Assessment/Plan: S/P Lap Ronit Post op care per surgery Code(s): K81.9 - CHOLECYSTITIS, UNSPECIFIED (2) Anemia Assessment/Plan: Will need endoscopic evaluation once acute issues are resolved. Outpatient follow-up upon discharge as in initial consultation Code(s): D64.9 - ANEMIA, UNSPECIFIED Qualifiers: Anemia type: iron deficiency
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
[2019-04-19] MEDS: oxyCODONE HCL 5 MG TABLET PO PRN ×2 (15:28→22:19)
--- NOTE | 2019-04-19 15:37 | PN ---
Physical Exam: SUBJECTIVE: Patient seen and examined at the bedside, there were no acute events overnight. Patient went to OR this morning. OBJECTIVE: Vital Signs Period Temp Pulse Resp BP Sys/Farooq Pulse Ox Last 24 Hr 97 F-98.5 F 59-104 16-20 110-149/52-76 95-98 GENERAL: The patient is awake, alert, and fully oriented, in no acute distress. HEAD: Normal with no signs of trauma. EYES: PERRL, extraocular movements intact, sclera anicteric, conjunctiva clear. No ptosis. ENT: Ears normal, nares patent, oropharynx clear without exudates, moist mucous membranes. NECK: Trachea midline, full range of motion, supple. LUNGS: Breath sounds equal, clear to auscultation bilaterally, no wheezes, no crackles, no accessory muscle use. HEART: Regular rate and rhythm, S1, S2 without murmur ABDOMEN: Soft, diffuse tenderness to palpation most tender in RUQ, nondistended , normoactive bowel sounds, RUQ guarding, no rebound EXTREMITIES: 2+ pulses, warm, well-perfused, no edema. NEUROLOGICAL: Cranial nerves II through XII grossly intact. Normal speech, gait not observed. PSYCH: Normal mood, normal affect. SKIN: Warm, dry, normal turgor, no rashes or lesions noted Laboratory Results - last 24 hr 04/18/19 04/18/19 04/18/19 06:25 16:48 21:19 WBC RBC Hgb Hct MCV MCH MCHC RDW Plt Count MPV Absolute Neuts (auto) Neutrophils % Lymphocytes % Monocytes % Eosinophils % Basophils % Nucleated RBC % PT with INR INR Sodium Potassium Chloride Carbon Dioxide Anion Gap BUN Creatinine Est GFR (CKD-EPI)AfAm Est GFR (CKD-EPI)NonAf POC Glucometer 289 135 Random Glucose Calcium Transferrin 269 Total Bilirubin AST ALT Alkaline Phosphatase Total Protein Albumin Triglycerides Cholesterol Total LDL Cholesterol HDL Cholesterol 04/19/19 04/19/19 04/19/19 05:30 05:30 05:30 WBC 7.6 RBC 3.59 L Hgb 8.3 L Hct 26.2 L MCV 73.0 L MCH 23.1 L MCHC 31.7 L RDW 17.5 H Plt Count 349 MPV 7.8 Absolute Neuts (auto) 3.3 Neutrophils % 43.1 D Lymphocytes % 45.5 H D Monocytes % 7.0 Eosinophils % 4.0 D Basophils % 0.4 Nucleated RBC % 0 PT with INR 12.50 INR 1.06 Sodium 140 Potassium 3.7 Chloride 108 H Carbon Dioxide 25 Anion Gap 8 BUN 6.0 L Creatinine 0.6 Est GFR (CKD-EPI)AfAm 116.45 Est GFR (CKD-EPI)NonAf 100.47 POC Glucometer Random Glucose 130 H Calcium 8.6 Transferrin Total Bilirubin 0.3 AST 19 ALT 25 Alkaline Phosphatase 77 Total Protein 6.4 Albumin 2.8 L Triglycerides 117 Cholesterol 93 Total LDL Cholesterol 45 HDL Cholesterol 36 L 04/19/19 04/19/19 06:14 12:09 WBC RBC Hgb Hct MCV MCH MCHC RDW Plt Count MPV Absolute Neuts (auto) Neutrophils % Lymphocytes % Monocytes % Eosinophils % Basophils % Nucleated RBC % PT with INR INR Sodium Potassium Chloride Carbon Dioxide Anion Gap BUN Creatinine Est GFR (CKD-EPI)AfAm Est GFR (CKD-EPI)NonAf POC Glucometer 139 308 Random Glucose Calcium Transferrin Total Bilirubin AST ALT Alkaline Phosphatase Total Protein Albumin Triglycerides Cholesterol Total LDL Cholesterol HDL Cholesterol Active Medications Generic Name Dose Route Start Last Admin Trade Name Freq PRN Reason Stop Dose Admin Acetaminophen 650 mg 04/19/19 10:27 04/19/19 15:29 Tylenol - PO 650 mg Q6H PRN Administration PAIN OR FEVER Fentanyl 50 mcg 04/19/19 10:34 Sublimaze Injection - IVPUSH 04/20/19 09:52 [id number] PRN PAIN-PACU ORDER X 4 DOSES ONLY Lactated Ringer's 1,000 mls @ 75 mls/hr 04/19/19 10:34 Lactated Ringers Solution IV [facility] Sodium Chloride 1,000 mls @ 75 mls/hr 04/19/19 10:34 Normal Saline - IV [facility] Insulin Aspart 1 vial 04/19/19 16:30 Novolog Vial Sliding Scale - SQ TIDAC JAMIE Protocol Insulin Detemir 5 units 04/19/19 22:00 Levemir Vial SQ HS JAMIE Ondansetron HCl 4 mg 04/19/19 10:34 Zofran Injection IVPUSH 04/20/19 09:52 Q6H PRN NAUSEA AND/OR VOMITING Oxycodone HCl 5 mg 04/19/19 10:26 Roxicodone - PO Q4H PRN PAIN LEVEL 1-5 Oxycodone HCl 10 mg 04/19/19 10:26 04/19/19 15:28 Roxicodone - PO 10 mg Q6H PRN Administration PAIN LEVEL 6-10 Prednisone 5 mg 04/20/19 10:00 Deltasone - PO DAILY JAMIE Imaging Abd U/S shows 2.8 cm mobile gallstone in the gallbladder with mild thickening of the GBW at 3.4mm. Pain could be secondary to cholelithiasis but cannot rule out other causes due to length and character of pain. CT AP with oral and IV contrast shows mild splenomegaly, no acute process, cholelithiasis, fatty liver Trend CBC ASSESSMENT/PLAN: Pt. is a 58 y.o. F w/ PMHx. of DM and OA here for abdominal pain for 2 years, worse over last 2 weeks and especially on day of admission. # Abdominal pain 2/2 Cholelithiasis - s/p CCY POD 0 - Surgery consult (Dr. Sr) appreciated - - liquid diet today, regular diet in AM - pain control per GI, oxycodone 5/10 - zofran for nausea # Microcytic Anemia - 2/2 iron defic - Patient with history of anemia during previous visits, current Hgb at 8.3 - F/u with GI outpatient, likely needs colonoscopy and maybe EGD # Elevated BUN BUN at 24.2, normal at previous visits likely secondary to hypovolemia and dehydration as patient has been vomiting and has had poor oral intake, low BP on ED arrival s/p 1L bolus of NS IVF # DM 2 - hold metformin and glipizide - cont SSI - resume low dose levemir tonight , can increase to full dose when po intake improves #RA- patient noted to be on prednisone at home, per patient its for RA, will continue # FEN LR @ 75mls/hr monitor electrolytes, replete as needed NPO # DVT Ppx. SCDs dispo: dc home tomorroe Visit type - Emergency Visit Emergency Visit: Yes ED Registration Date: 04/17/19 Care time: The patient presented to the Emergency Department on the above date and was hospitalized for further evaluation of their emergent condition. - New Patient This patient is new to me today: No - Critical Care Critical Care patient: No - Discharge Referral Referred to [facility] Med P.C.: No ATTENDING PHYSICIAN STATEMENT I saw and evaluated the patient. I reviewed the resident's note and discussed the case with the resident. I agree with the resident's findings and plan as documented. SUBJECTIVE: OBJECTIVE: ASSESSMENT AND PLAN:
[2019-04-19] MEDS ORDERED: INSULIN (NOVOLOG) ASPART 100 UNITS/ML 10ML VIAL ONE (17:38)
[2019-04-19] MEDS ORDERED: PT OWN MED DRAWER 7, Y5N ONE (17:38)
[2019-04-19] MEDS ORDERED: INSULIN (LEVEMIR) 100 UNITS/ML UNITS SQ SCH (22:00)
[2019-04-20 06:49] LABS: BASO % 0.3 % (0-2.0); EOS % 0.4 % (0-4.5); HEMATOCRIT 26.8 % (32.4-45.2); HEMOGLOBIN 8.2 GM/dL (10.7-15.3); LYMPH % 14.1 % (8-40); MCH 22.4 pg (25.7-33.7); MCHC 30.7 g/dl (32.0-36.0); MEAN PLT VOLUME 7.5 fl (7.5-11.1); MONO % 2.6 % (3.8-10.2); NEUT % 82.6 % (42.8-82.8); PLATELET COUNT 322 K/MM3 (134-434); RBC 3.68 M/mm3 (3.60-5.2); RDW 17.4 % (11.6-15.6); WHITE BLOOD COUNT 13.4 K/mm3 (4.0-10.0)
[2019-04-20] MEDS: INSULIN SLIDING SCALE (NOVOLOG) 1 VIAL SQ SCH ×2 (06:53→11:41)
--- NOTE | 2019-04-20 07:28 | PN ---
Progress Note (short form) - Note Progress Note: 58yo F s/p Lap Ronit POD 1, pt seen and examined at bedside. Pt admits to mild abd pain. Tolerating PO and ambulating well. Pt states that she is hungry. Denies fever, chills, n/v, cp, sob. Last Vital Signs Temp Pulse Resp BP Pulse Ox 99.7 F H 90 20 120/60 95 04/20/19 06:00 04/20/19 06:00 04/20/19 06:00 04/20/19 06:00 04/19/19 13:10 CBC, BMP 04/20/19 06:27 PE: Gen: A&O X3 Resp: breathing comfortably Abd: soft, nondistended, mild tenderness, incisions clean with no erythema or discharge. Ext: no edema Problem List - Problems (1) Cholelithiasis Assessment/Plan: Plan -will adv to diabetic diet, pt should be cleared for discharge from surgical standpoint. -pt should follow up with Dr. Sr in 1 week as outpatient Please contact surgical team is any issues or complaints. Code(s): K80.20 - CALCULUS OF GALLBLADDER W/O CHOLECYSTITIS W/O OBSTRUCTION Qualifiers: Cholecystitis presence: with cholecystitis
[2019-04-20 07:31] LABS: ALBUMIN 2.6 g/dl (3.4-5.0); BILIRUBIN,TOTAL 0.5 mg/dL (0.2-1); BLOOD UREA NITROGEN 5.9 mg/dL (7-18); CALCIUM 8.3 mg/dL (8.5-10.1); CREATININE 0.5 mg/dL (0.55-1.3); POTASSIUM 3.2 mmol/L (3.5-5.1); TOT PROT 6.2 g/dl (6.4-8.2)
[2019-04-20] MEDS ORDERED: POTASSIUM CHLORIDE TABS 20 MEQ TABLET.ER (FP) PO ONE (07:53)
[2019-04-20] MEDS ORDERED: predniSONE 5 MG TABLET (UD) PO SCH (10:00)
[2019-04-20 11:04] VITALS: BP 123/67; PULSE 82; TEMP 99.4
[2019-04-20] MEDS ORDERED: INSULIN (NOVOLOG) ASPART 100 UNITS/ML 10ML VIAL ONE (11:35)
--- NOTE | 2019-04-20 12:42 | PN ---
Progress Note (short form) - Note Progress Note: Doing well day 1 s/p laparascopic cholecystectomy. Continues with icrocytic anemia. For follow up with GI once recovered from lap lexie for endoscopic evaluation. Please schedule with Dr. Olmedo.
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
--- NOTE | 2019-04-20 14:49 | DS ---
Physical Exam: SUBJECTIVE: Patient seen and examined OBJECTIVE: Vital Signs Period Temp Pulse Resp BP Sys/Farooq Pulse Ox Last 24 Hr 98.2 F-99.7 F 82-98 20-20 120-142/60-70 PHYSICAL EXAM GENERAL: The patient is awake, alert, and fully oriented, in no acute distress. HEAD: Normal with no signs of trauma. EYES: PERRL, extraocular movements intact, sclera anicteric, conjunctiva clear. ENT: Ears normal, nares patent, oropharynx clear without exudates, moist mucous membranes. NECK: Trachea midline, full range of motion, supple. LUNGS: Breath sounds equal, clear to auscultation bilaterally, no wheezes, no crackles, no accessory muscle use. HEART: Regular rate and rhythm, S1, S2 without murmur, rub or gallop. ABDOMEN: Soft, nontender, nondistended, normoactive bowel sounds, no guarding, no rebound, no hepatosplenomegaly, no masses. EXTREMITIES: 2+ pulses, warm, well-perfused, no edema. NEUROLOGICAL: Cranial nerves II through XII grossly intact. Normal speech, gait not observed. PSYCH: Normal mood, normal affect. SKIN: Warm, dry, normal turgor, no rashes or lesions noted. LABS Laboratory Results - last 24 hr 04/19/19 04/19/19 04/20/19 17:11 21:47 06:27 WBC 13.4 H RBC 3.68 Hgb 8.2 L Hct 26.8 L MCV 73.0 L MCH 22.4 L MCHC 30.7 L RDW 17.4 H Plt Count 322 MPV 7.5 Absolute Neuts (auto) 11.1 H Neutrophils % 82.6 D Lymphocytes % 14.1 D Monocytes % 2.6 L Eosinophils % 0.4 D Basophils % 0.3 Nucleated RBC % 0 Sodium Potassium Chloride Carbon Dioxide Anion Gap BUN Creatinine Est GFR (CKD-EPI)AfAm Est GFR (CKD-EPI)NonAf POC Glucometer 265 205 Random Glucose Calcium Total Bilirubin AST ALT Alkaline Phosphatase Total Protein Albumin 04/20/19 04/20/19 04/20/19 06:27 06:51 11:38 WBC RBC Hgb Hct MCV MCH MCHC RDW Plt Count MPV Absolute Neuts (auto) Neutrophils % Lymphocytes % Monocytes % Eosinophils % Basophils % Nucleated RBC % Sodium 136 Potassium 3.2 L Chloride 104 Carbon Dioxide 23 Anion Gap 9 BUN 5.9 L Creatinine 0.5 L Est GFR (CKD-EPI)AfAm 123.65 Est GFR (CKD-EPI)NonAf 106.68 POC Glucometer 177 181 Random Glucose 163 H Calcium 8.3 L Total Bilirubin 0.5 AST 47 H ALT 53 Alkaline Phosphatase 78 Total Protein 6.2 L Albumin 2.6 L HOSPITAL COURSE: Date of Admission:04/17/19 Date of Discharge: 04/20/19 Minutes to complete discharge: 40 Discharge Summary Problems reviewed: Yes Reason For Visit: SYMPTOMATIC CHOLELITHIASIS, DIABETES MELLITUS Current Active Problems Anemia (Chronic) Condition: Improved - Instructions Diet, Activity, Other Instructions: You were in the hospital because you were having abdominal pain. Imaging revealed that you gallbladder had stones which can cause blockages that cause pain. Dr. Sr, a surgeon evaluated you, and performed surgery to remove your gallbladder. While you were in the hospital we also noticed you had anemia and your blood counts were low. Your iron levels were also low. Please follow up with your dietary aide Dr. Olmedo for an endoscopy and colonoscopy to further evaluate the cause of your anemia and low iron. You may also need to follow up with Dr. Billy, a sheet heater (blood doctor) to evaluate the causes of your anemia further. Please continue to take all of your home medications as prescribed. You may take Tylenol as needed for pain. DO NOT TAKE MORE THAN 4g OF TYLENOL IN 1 DAY. Please follow up with the following doctors within 1 week of discharge from the hospital: - Dr. Sr, to check on you after the operation and make sure everything is healing well - Dr. Hong, your primary care doctor - Dr Olmedo, to evaluate your anemia - Dr. Billy, to evaluate your anemia Please be sure to follow Dr. Sr's discharge instructions below: Dr. Sr Discharge Instructions Dear LASHELL FELTON, Post Operative Instructions Physical activity Resume your normal everyday activity as tolerated no heavy lifting or exercise until seen by your surgeon. You may walk unlimited amounts of and climb stairs. You may resume driving the car when you feel safe and comfortable behind the wheel and are no longer taking narcotics Wound care If you have a bandage, leave it on, and keep dry for 48 hours. After that time discard the outer bandage. If there are tapes on the skin under the outer bandage, leave them in place. They will peel off in the next 7 to 10 days. Do Not peel them off. You may shower 2 days after surgery, but do not submerge the incisions. If there are tapes present on the skin, they can get wet. Do not apply lotion or ointments to incisions. Diet There are no dietary restrictions. Eat healthy, high-fiber foods. Drink 6 to 8 glasses of liquid each day. This will assist in keeping your bowels are regular. Pain management You may take Tylenol or acetaminophen or Ibuprofen (for example, Motrin, Advil etc.) Any pain prescription medication ordered should be taken as prescribed for moderate to severe pain. Call Dr. Sr for any of the following: Severe pain not relieved by medication Fever of 101 or higher Excessive bleeding or drainage on dressing Inability to urinate If you experience any chest pain or shortness of breath please seek emergency treatment Call the office at [phone] for a post operative appointment in 7 - 10 days. Referrals: Dread Sr MD [Staff Physician] - 1 Week Dyana Hong MD [Non Staff, Medical] - 1 Week Nico Olmedo DO [Staff Physician] - 1 Week Emile Billy MD [Staff Physician] - Disposition: HOME - Home Medications Comprehensive Discharge Medication List: Ambulatory Orders Metformin HCl [Glucophage] 1,000 mg PO BID 06/20/17 Glipizide 10 mg PO BID 04/17/19 Atorvastatin Ca [Lipitor] 20 mg PO DAILY 04/18/19 Insulin Glargine,Hum.rec.anlog [Lantus Solostar] 10 unit SQ HS 04/18/19 Prednisone 5 mg PO DAILY 04/18/19 Acetaminophen [Tylenol] 650 mg PO Q4H PRN #30 capsule 04/20/19 Ferrous Sulfate 325 mg PO TID #30 tablet 04/20/19 Ibuprofen 200 mg PO Q4H PRN #30 tablet 04/20/19 Pantoprazole Sodium [Protonix] 40 mg PO DAILY #30 tablet. 04/20/19 This patient is new to me today: No Emergency Visit: Yes ED Registration Date: 04/17/19 Care time: The patient presented to the Emergency Department on the above date and was hospitalized for further evaluation of their emergent condition. Critical Care patient: No - Discharge Referral Referred to [facility] Med P.C.: No ATTENDING PHYSICIAN STATEMENT I saw and evaluated the patient. I reviewed the resident's note and discussed the case with the resident. I agree with the resident's findings and plan as documented. SUBJECTIVE: OBJECTIVE: ASSESSMENT AND PLAN:
--- NOTE | 2019-04-20 17:57 | PATH ---
Surgical Pathology Report Patient Name: LASHELL FELTON Med. Rec. #: [id number] /Age/Gender: 1960 (Age: 58) / F Account: [id number] Location: [facility] MED/SURG Taken: 04/19/2019 Received: 04/19/2019 Reported: 04/20/2019 Physicians: Perlita Santoro M.D. Specimen(s) Received GALLBLADDER Clinical History Symptomatic cholelithiasis Final Diagnosis GALLBLADDER, LAPAROSCOPIC CHOLECYSTECTOMY: ACUTE AND CHRONIC CHOLECYSTITIS WITH CHOLELITHIASIS. Electronically Signed Dyana Durahm M.D. Gross Description Received in formalin, labeled "gallbladder," is a 6 x 3 x 3 cm. gallbladder with a 0.4 cm. in length portion of cystic duct attached. The outer surface is pink-rain and varies from smooth to shaggy. The lumen contains multiple, black, fragmented choleliths ranging in size from 0.1 to 3.5 cm in greatest dimension. The mucosa is rain-pink and focally eroded. The wall of the gallbladder measures up to 0.1 cm. in thickness. Promotion Writer sections are submitted in one cassette. MLSZ/04/19/2019 [email or web address]/04/19/2019
== END 2019-04-20 14:58 | disposition home or self-care (01) | DRG 263 ==
LOC: JER 18:38 → JERBED 22:03 → J8W 04-18 02:11
PROVIDERS: ADMIT Internal Medicine; ATTEND Internal Medicine
PROC: 0FT44ZZ Resection of Gallbladder, Percutaneous Endoscopic Approach (ICD-10-PCS; principal; 2019-04-19 08:00)
DX: K80.00 Calculus of gallbladder with acute cholecystitis without obstruction (principal); I10 Essential (primary) hypertension; E11.9 Type 2 diabetes mellitus without complications; R11.2 Nausea with vomiting, unspecified; R42 Dizziness and giddiness; D50.9 Iron deficiency anemia, unspecified; E86.1 Hypovolemia; F17.210 Nicotine dependence, cigarettes, uncomplicated; R16.1 Splenomegaly, not elsewhere classified; E86.0 Dehydration; K76.0 Fatty (change of) liver, not elsewhere classified; D64.9 Anemia, unspecified; M06.9 Rheumatoid arthritis, unspecified; R00.0 Tachycardia, unspecified
CPT/HCPCS: 36415; 71046-TC-FY; 74177-TC; 76705-TC; 80053; 80061; 81003; 82272; 82550; 82728; 82962; 83036; 83540; 83550; 83690; 83721; 84466; 84484; 85025; 85027; 85044; 85610; 85730; 86850; 86900; 86901; 87086; 88304-TC; 93005; 93010; 94760; 99284-25; J0131; J7030

== ENCOUNTER 2020-12-04 11:32 | Emergency (ER) | payer OTHER ==
[2020-12-04 12:08] VITALS: BMI 29.2
[2020-12-04] MEDS ORDERED: ONDANSETRON 4 MG/2 ML VIAL IVPUSH ONE (12:51)
[2020-12-04] MEDS ORDERED: SODIUM CHLORIDE 1,000 ML IV STA (12:51)
[2020-12-04] MEDS ORDERED: ACETAMINOPHEN 1000 MG/100 ML VIAL (NON FORMULARY) IVPB ONE (12:56)
[2020-12-04 14:14] LABS: BASO % 0.1 % (0-2.0); EOS % 0.8 % (0-4.5); HEMATOCRIT 34.6 % (32.4-45.2); HEMOGLOBIN 11.2 GM/dL (10.7-15.3); LYMPH % 19.5 % (8-40); MCH 25.7 pg (25.7-33.7); MCHC 32.4 g/dl (32.0-36.0); MEAN CELL VOLUME 79.4 fl (80-96); MEAN PLT VOLUME 8.6 fl (7.5-11.1); MONO % 2.6 % (3.8-10.2); PLATELET COUNT 336 K/MM3 (134-434); RBC 4.36 M/mm3 (3.60-5.2); RDW 15.2 % (11.6-15.6); WHITE BLOOD COUNT 9.5 K/mm3 (4.0-10.0)
[2020-12-04 14:40] LABS: CHLORIDE 105 mmol/L (98-107); SODIUM 139 mmol/L (136-145)
[2020-12-04] MEDS ORDERED: METOCLOPRAMIDE HCL INJECTION 10 MG/2 ML VIAL IVPB ONE (14:41)
[2020-12-04] MEDS ORDERED: morphine CARPU-JECT 2 MG/1 ML DISP.SYRIN IVPUSH ONE (14:41)
[2020-12-04 14:43] LABS: ALBUMIN 3.5 g/dl (3.4-5.0); ANION GAP 8 MMOL/L (8-16); BLOOD UREA NITROGEN 10.4 mg/dL (7-18); CALCIUM 8.7 mg/dL (8.5-10.1); CO2 26 mmol/L (21-32); GLUCOSE,RANDOM 140 mg/dL (74-106); LIPASE 115 U/L (73-393)
[2020-12-04] MEDS ORDERED: ACETAMINOPHEN INJECTION 100 ML IVPB ONE (14:43)
[2020-12-04] MEDS ORDERED: ONDANSETRON 4 MG/2 ML VIAL ONE (14:43)
[2020-12-04 14:46] LABS: CREATININE 0.5 mg/dL (0.55-1.3); SGOT/AST 16 U/L (15-37); SGPT/ALT 26 U/L (13-61)
[2020-12-04 14:48] LABS: BILIRUBIN,TOTAL 0.4 mg/dL (0.2-1); TOT PROT 7.1 g/dl (6.4-8.2)
[2020-12-04 14:50] LABS: ALK PHOS 86 U/L (45-117)
[2020-12-04] MEDS ORDERED: morphine SULFATE 4 MG/ML VIAL ONE (14:59)
[2020-12-04 15:18] LABS: URINE APPEARANCE CLEAR; URINE BILIRUBIN NEGATIVE (NEGATIVE); URINE COLOR YELLOW; URINE GLUCOSE (UA) 3+ (NEGATIVE); URINE KETONE 1+ (NEGATIVE); URINE LEUK ESTERASE NEGATIVE (NEGATIVE); URINE NITRITE NEGATIVE (NEGATIVE); URINE PROTEIN NEGATIVE (NEGATIVE); URINE UROBILINOGEN 0.2 mg/dL (0.2-1.0)
[2020-12-04 15:48] LABS: VENOUS BASE EXCESS -3.9 mmol/L (-2-2); VENOUS O2 SATURATION 97.7 % (70-80); VENOUS PCO2 33.8 mmHg (38-52); VENOUS PH 7.397 (7.310-7.410)
[2020-12-04] MEDS ORDERED: FAMOTIDINE 20 MG/50 ML IVPB 20 MG/50 ML MG IVPB ONE (16:56)
[2020-12-04 18:45] VITALS: BP 112/72; PULSE 72; TEMP 98.3
== END 2020-12-04 16:20 | disposition home or self-care (01) ==
LOC: JER 11:32
PROC: 3E0333Z Introduction of Anti-inflammatory into Peripheral Vein, Percutaneous Approach (ICD-10-PCS; principal; 2020-12-04)
PROC: 3E033NZ Introduction of Analgesics, Hypnotics, Sedatives into Peripheral Vein, Percutaneous Approach (ICD-10-PCS; 2020-12-04)
PROC: 3E033GC Introduction of Other Therapeutic Substance into Peripheral Vein, Percutaneous Approach (ICD-10-PCS; 2020-12-04)
PROC: 3E0337Z Introduction of Electrolytic and Water Balance Substance into Peripheral Vein, Percutaneous Approach (ICD-10-PCS; 2020-12-04)
DX: R10.9 Unspecified abdominal pain (principal)
CPT/HCPCS: 36415; 74177-TC; 80053; 81003; 82010; 82550; 82803; 82962; 83605; 83690; 84484; 85025; 87086; 93005; 93010; 99285-25; J0131; Q9967

== ENCOUNTER 2021-10-09 14:24 | Observation (INO) | payer OTHER ==
[2021-10-09 15:06] VITALS: BMI 18.8
[2021-10-09] MEDS ORDERED: SODIUM CHLORIDE 0.9% 500 ML INFUS.BAG IV ONE (15:31)
[2021-10-09] MEDS ORDERED: KETOROLAC TROMETHAMINE 15 MG/ML VIAL IVPUSH ONE (15:31)
[2021-10-09] MEDS ORDERED: KETOROLAC TROMETHAMINE 15 MG/ML VIAL ONE (15:36)
[2021-10-09] MEDS ORDERED: morphine CARPU-JECT 4 MG/1 ML DISP.SYRIN IVPUSH ONE (16:13)
[2021-10-09] MEDS ORDERED: morphine SULFATE 4 MG/ML VIAL ONE (16:29)
[2021-10-09 16:42] LABS: BASO % 0.3 % (0-2.0); EOS % 1.5 % (0-4.5); LYMPH % 14.5 % (8-40); MCH 24.2 pg (25.7-33.7); MEAN CELL VOLUME 75.9 fl (80-96); MONO % 2.5 % (3.8-10.2); NEUT % 81.2 % (42.8-82.8); PLATELET COUNT 513 10^3/uL (134-434); RBC 3.69 M/mm3 (3.60-5.2); RDW 16.6 % (11.6-15.6); WHITE BLOOD COUNT 7.1 K/mm3 (4.0-10.0)
[2021-10-09 16:47] LABS: PROTHROMBIN TIME (PATIENT) 11.5 SEC (9.7-13.0)
[2021-10-09 16:50] LABS: ACTIVATED PTT 28.3 SECONDS (25.2-36.5)
[2021-10-09 16:59] LABS: ALBUMIN 2.8 g/dl (3.4-5.0); BLOOD UREA NITROGEN 16.5 mg/dL (7-18); CALCIUM 9.6 mg/dL (8.5-10.1); MAGNESIUM 1.7 mg/dL (1.8-2.4)
[2021-10-09 17:02] LABS: CREATININE 0.5 mg/dL (0.55-1.3)
[2021-10-09 17:04] LABS: BILIRUBIN,TOTAL 0.3 mg/dL (0.2-1); TOT PROT 6.9 g/dl (6.4-8.2)
[2021-10-09] MEDS ORDERED: ONDANSETRON 4 MG/2 ML VIAL IVPUSH ONE (17:13)
[2021-10-09] MEDS ORDERED: predniSONE 20 MG TABLET (UD) PO ONE (17:13)
[2021-10-09] MEDS ORDERED: predniSONE 20 MG TABLET (UD) ONE (17:15)
[2021-10-09] MEDS ORDERED: ONDANSETRON 4 MG/2 ML VIAL ONE (17:15)
[2021-10-09 17:28] LABS: ERYTHROCYTE SEDIMENTATION RATE 79 mm/hr (0-30)
[2021-10-09] MEDS ORDERED: FAMOTIDINE 20 MG/50 ML IVPB 20 MG/50 ML MG IVPB ONE ×2 (17:42→17:47)
[2021-10-09] MEDS ORDERED: ACETAMINOPHEN 1000 MG/100 ML BAG IVPB ONE (18:42)
[2021-10-09] MEDS ORDERED: ACETAMINOPHEN INJECTION 100 ML IVPB ONE (19:00)
[2021-10-09] MEDS ORDERED: ACETAMINOPHEN 325 MG TABLET (FP) PO PRN (21:10)
[2021-10-09] MEDS ORDERED: NAPROXEN 375 MG TABLET PO SCH (21:15)
[2021-10-09] MEDS ORDERED: MAGNESIUM 1GM/D5W 100ML - 100 ML IVPB IVPB ONE (21:17)
[2021-10-09] MEDS ORDERED: NAPROXEN 500 MG TABLET ONE (21:20)
[2021-10-09 21:33] LABS: URINE APPEARANCE CLEAR; URINE BILIRUBIN NEGATIVE (NEGATIVE); URINE COLOR YELLOW; URINE GLUCOSE (UA) NEGATIVE (NEGATIVE); URINE KETONE 1+ (NEGATIVE); URINE LEUK ESTERASE NEGATIVE (NEGATIVE); URINE NITRITE NEGATIVE (NEGATIVE); URINE PROTEIN NEGATIVE (NEGATIVE); URINE UROBILINOGEN 0.2 mg/dL (0.2-1.0)
[2021-10-09] MEDS ORDERED: MAGNESIUM 1GM/D5W - 1 GM/100 ML IVPB IVPB ONE (22:11)
[2021-10-09] MEDS: INSULIN SLIDING SCALE (NOVOLOG) 1 VIAL SQ SCH (22:21)
[2021-10-10] MEDS: INSULIN SLIDING SCALE (NOVOLOG) 1 VIAL SQ SCH ×3 (06:41→18:10)
[2021-10-10 08:48] LABS: BASO % 0.1 % (0-2.0); EOS % 0.1 % (0-4.5); LYMPH % 17.4 % (8-40); MCH 24.4 pg (25.7-33.7); MCHC 31.8 g/dl (32.0-36.0); MEAN CELL VOLUME 76.6 fl (80-96); MEAN PLT VOLUME 8.3 fl (7.5-11.1); NEUT % 79.4 % (42.8-82.8); PLATELET COUNT 477 10^3/uL (134-434); RBC 3.27 M/mm3 (3.60-5.2); RDW 16.2 % (11.6-15.6); RETICULOCYTES 0.99 % (0.5-1.5); WHITE BLOOD COUNT 7.5 K/mm3 (4.0-10.0)
[2021-10-10 08:51] LABS: CHLORIDE 106 mmol/L (98-107); SODIUM 138 mmol/L (136-145)
[2021-10-10 08:57] LABS: CALCIUM 9.2 mg/dL (8.5-10.1)
[2021-10-10 08:58] LABS: ALBUMIN 2.7 g/dl (3.4-5.0); ANION GAP 9 MMOL/L (8-16); BLOOD UREA NITROGEN 13.4 mg/dL (7-18); CO2 22 mmol/L (21-32); GLUCOSE,RANDOM 155 mg/dL (74-106); MAGNESIUM 2.1 mg/dL (1.8-2.4)
[2021-10-10 09:01] LABS: CREATININE 0.5 mg/dL (0.55-1.3); PHOSPHOROUS 3.5 mg/dL (2.5-4.9); SGOT/AST 51 U/L (15-37); SGPT/ALT 39 U/L (13-61)
[2021-10-10 09:03] LABS: BILIRUBIN,TOTAL 0.5 mg/dL (0.2-1); TOT PROT 6.6 g/dl (6.4-8.2)
[2021-10-10 09:04] LABS: ALK PHOS 143 U/L (45-117)
[2021-10-10 09:05] LABS: TOTAL IRON BINDING CAPACITY 313 ug/dL (250-450)
[2021-10-10] MEDS ORDERED: ACETAMINOPHEN 325 MG TABLET (FP) PO PRN ×2 (09:11→09:12)
[2021-10-10] MEDS ORDERED: predniSONE 20 MG TABLET (UD) PO SCH ×3 (10:00)
[2021-10-10] MEDS ORDERED: PANTOPRAZOLE 40 MG TABLET PO SCH (10:00)
[2021-10-10] MEDS ORDERED: NAPROXEN 500 MG TABLET PO SCH (10:00)
[2021-10-10] MEDS ORDERED: ATORVASTATIN CA 20 MG TABLET (FP) PO SCH (10:00)
[2021-10-10] MEDS ORDERED: FOLIC ACID 1 MG TABLET (FP) PO SCH (15:15)
[2021-10-10 16:06] VITALS: BP 110/61; PULSE 77; TEMP 98.1
[2021-10-10] MEDS ORDERED: METHOTREXATE 2.5 MG TABLET PO SCH (17:00)
[2021-10-10 20:44] LABS: IRON SERUM QNS ug/dL (50-175)
[2021-10-11] MEDS ORDERED: predniSONE 2.5 MG TABLET PO SCH (10:00)
== END 2021-10-10 20:09 | disposition home or self-care (01) ==
LOC: JER 14:24 → JERBED 19:25 → J8W 10-10 06:56
PROVIDERS: ADMIT Hospitalist; ATTEND Internal Medicine
PROC: 3E013VG Introduction of Insulin into Subcutaneous Tissue, Percutaneous Approach (ICD-10-PCS; principal; 2021-10-09)
PROC: 3E033GC Introduction of Other Therapeutic Substance into Peripheral Vein, Percutaneous Approach (ICD-10-PCS; 2021-10-09)
PROC: 3E033NZ Introduction of Analgesics, Hypnotics, Sedatives into Peripheral Vein, Percutaneous Approach (ICD-10-PCS; 2021-10-09)
PROC: 3E0333Z Introduction of Anti-inflammatory into Peripheral Vein, Percutaneous Approach (ICD-10-PCS; 2021-10-09)
PROC: 3E0337Z Introduction of Electrolytic and Water Balance Substance into Peripheral Vein, Percutaneous Approach (ICD-10-PCS; 2021-10-09)
DX: I00 Rheumatic fever without heart involvement (principal); Z29.9 Encounter for prophylactic measures, unspecified; E11.9 Type 2 diabetes mellitus without complications; M06.9 Rheumatoid arthritis, unspecified; I10 Essential (primary) hypertension; M25.50 Pain in unspecified joint
CPT/HCPCS: 36415; 71045-TC-FY; 72125-TC; 73110-TC-LT-FY; 73110-TC-RT-FY; 73130-TC-LT-FY; 73130-TC-RT-FY; 73521-TC-FY; 73562-TC-LT-FY; 73562-TC-RT-FY; 80053; 81003; 82272; 82728; 82962; 83550; 83735; 84100; 84443; 85025; 85045; 85610; 85651; 85730; 86038; 86140; 86200; 86431; 87086; 93005; 93010; 96365; 96372; 96375; 97116-GP; 97161-GP; 99285-25; C9803-CS; G0378; J8610; U0003; U0005

== ENCOUNTER 2023-04-24 20:39 | Emergency (ER) | payer OTHER ==
[2023-04-24 20:46] VITALS: RESP 20; TEMP 98.1; BMI 22.9
[2023-04-24] MEDS ORDERED: ACETAMINOPHEN 1000 MG/100 ML BAG IVPB ONE (21:33)
[2023-04-24] MEDS ORDERED: ACETAMINOPHEN INJECTION 100 ML IVPB ONE (21:42)
[2023-04-24 22:25] LABS: BASO % 0.2 % (0-2.0); EOS % 4.3 % (0-4.5); HEMATOCRIT 34.3 % (32.4-45.2); HEMOGLOBIN 10.6 GM/dL (10.7-15.3); LYMPH % 28.5 % (8-40); MCH 23.9 pg (25.7-33.7); MEAN CELL VOLUME 76.9 fl (80-96); MEAN PLT VOLUME 9.5 fl (7.5-11.1); MONO % 3.7 % (3.8-10.2); NEUT % 63.3 % (42.8-82.8); PLATELET COUNT 249 10^3/uL (134-434); RBC 4.46 M/mm3 (3.60-5.2); RDW 18.4 % (11.6-15.6); WHITE BLOOD COUNT 4.4 K/mm3 (4.0-10.0)
[2023-04-24 22:46] LABS: ALBUMIN 3.5 g/dl (3.4-5.0); BLOOD UREA NITROGEN 15.1 mg/dL (7-18); CALCIUM 8.5 mg/dL (8.5-10.1)
[2023-04-24 22:48] LABS: PH,URINE 7.5 (5.0-8.0); URINE APPEARANCE CLEAR; URINE BILIRUBIN NEGATIVE (NEGATIVE); URINE COLOR YELLOW; URINE GLUCOSE (UA) NEGATIVE (NEGATIVE); URINE KETONE NEGATIVE (NEGATIVE); URINE LEUK ESTERASE NEGATIVE (NEGATIVE); URINE NITRITE NEGATIVE (NEGATIVE); URINE PROTEIN NEGATIVE (NEGATIVE); URINE UROBILINOGEN 0.2 mg/dL (0.2-1.0)
[2023-04-24 22:49] LABS: CREATININE 0.8 mg/dL (0.55-1.3)
[2023-04-24 22:50] LABS: BILIRUBIN,TOTAL 0.4 mg/dL (0.2-1)
[2023-04-24 22:51] LABS: TOT PROT 7.5 g/dl (6.4-8.2)
[2023-04-24 23:58] VITALS: BP 126/68; PULSE 65
[2023-04-25] MEDS ORDERED: KETOROLAC TROMETHAMINE 15 MG/ML VIAL IVPUSH ONE (02:29)
== END 2023-04-25 03:36 | disposition home or self-care (01) ==
LOC: JER 20:39
PROC: 3E033NZ Introduction of Analgesics, Hypnotics, Sedatives into Peripheral Vein, Percutaneous Approach (ICD-10-PCS; principal; 2023-04-24)
DX: R10.11 Right upper quadrant pain (principal); K59.00 Constipation, unspecified; K76.0 Fatty (change of) liver, not elsewhere classified; R11.2 Nausea with vomiting, unspecified
CPT/HCPCS: 36415; 74177-TC; 76705-TC; 80053; 81003; 83690; 84484; 85025; 87086; 93005; 93010; 99285-25; Q9967

== ENCOUNTER 2024-10-01 18:53 | Emergency (ER) | payer OTHER ==
[2024-10-01 19:02] VITALS: BP 157/79; PULSE 79; RESP 16; TEMP 98.4; BMI 25.8
[2024-10-01] MEDS ORDERED: ACETAMINOPHEN 500 MG TABLET (FP) ONE (20:14)
[2024-10-01] MEDS ORDERED: DIPHTH,PERTUSS(ACELL),TET 0.5 ML DISP.SYRIN IM ONE (20:15)
[2024-10-01] MEDS: DIPHTH,PERTUSS(ACELL),TET 0.5 ML DISP.SYRIN IM ONE (20:18)
[2024-10-01] MEDS: ACETAMINOPHEN 500 MG TABLET (FP) PO ONE (20:20)
== END 2024-10-01 20:20 | disposition home or self-care (01) ==
LOC: JERFT 18:53 → JER 18:53 → JERFT 20:20
PROC: 3E0234Z Introduction of Serum, Toxoid and Vaccine into Muscle, Percutaneous Approach (ICD-10-PCS; principal; 2024-10-01)
DX: S61.511A Laceration without foreign body of right wrist, initial encounter (principal); Z23 Encounter for immunization; W26.8XXA Contact with other sharp object(s), not elsewhere classified, initial encounter
CPT/HCPCS: 90471; 90715; 99284-25